=== PATIENT | female | born 1940 | race Caucasian/White ===

== ENCOUNTER 2018-05-24 15:44 | Emergency (ER) | payer MEDICARE, OTHER, SELFPAY ==
[2018-05-24 15:49] VITALS: BP 127/70; PULSE 71; RESP 18; TEMP 36.7; O2SAT 97; BMI 41.9
--- NOTE | 2018-05-24 15:58 | ED_ITS ---
HPI - Back Pain/Injury <DUSTIN Moise - Last Filed: 05/24/18 22:55> General Chief Complaint: Back Pain/Injury Stated Complaint: GLF/ back pain Time Seen by Provider: 05/24/18 15:58 History of Present Illness HPI Narrative: 78-year-old female here for complaint of pain to her lower back status post ground level fall. Patient states that she was at home when she tripped over a garden hose causing her to fall backwards landing on her lower back. She states she has he was able to ambulate afterwards although was tender to the lower back when she did ambulate or bear weight. She denies any loss of bladder or bowel control. Increased pain with motion of the lower back. Pain is limited to the lower back. She denies any head injury. No loss of conscious. No nausea or vomiting. No other concerns or complaints at this time. MD Complaint: back injury Related Data Home Medications Medication Instructions Recorded Confirmed [LUTEIN] 15 mg PO SEE INSTRUCTIONS #0 04/23/11 [VITAMIN D] 400 iu PO Q DAY #0 01/27/13 aspirin 81 mg PO QDAY #0 02/22/17 calcium carbonate-vitamin D3 PO QDAY #0 02/22/17 [Calcium 600 with Vitamin D3] Previous Rx's Medication Instructions Recorded atorvastatin [Lipitor] 20 mg PO HS #90 tab 09/15/17 citalopram 20 mg PO QDAY #90 tab 09/15/17 metoprolol succinate [Toprol XL] 12.5 - 25 mg PO QDAY #135 ter 09/15/17 ranitidine HCl 150 mg PO BID PRN #180 cap 09/21/17 cyclobenzaprine 7.5 mg PO TID PRN #10 tab 05/24/18 hydrocodone-acetaminophen [[place]] 1 tab PO Q6H PRN #10 tab 05/24/18 zolpidem 5 mg tablet 5 mg PO ONCE PRN #1 tab 05/24/18 Allergies Allergy/AdvReac Type Severity Reaction Status Date / Time No Known Drug Allergies Allergy Verified 05/24/18 15:49 Review of Systems <DUSTIN Moise - Last Filed: 05/24/18 22:55> Constitutional Denies chills, Denies fever(s), Denies lethargy and Denies weakness Eyes Denies change in vision, Denies eye discharge, Denies irritation and Denies loss of vision ENT Ears, Nose, Mouth, and Throat: Denies change in voice, Denies neck pain and Denies sore throat Cardiovascular Denies chest pain, Denies irregular heart rhythm, Denies lightheadedness, Denies palpitations, Denies dyspnea, Denies dyspnea on exertion and Denies orthopnea Respiratory Denies cough, Denies dyspnea, Denies dyspnea on exertion and Denies wheezing Gastrointestinal Gastrointestinal: Denies abdominal pain, Denies change in bowel habits, Denies diarrhea, Denies nausea and Denies vomiting Genitourinary Denies hematuria, Denies flank pain, Denies urinary incontinence and Denies urinary urgency Musculoskeletal Denies neck pain Comments: Lower back pain Integumentary/Breasts Denies pruritus, Denies erythema, Denies rash and Denies wounds Neurologic Denies confusion, Denies loss of vision and Denies weakness Psychiatric Denies anxiety, Denies confusion, Denies depression, Denies homicidal ideation and Denies suicidal ideation Endocrine Denies palpitations Hematologic/Lymphatic Denies easy bruising Allergic/Immunologic Denies wheezing Exam <DUSTIN Moise - Last Filed: 05/24/18 22:55> Initial Vital Signs Initial Vital Signs: Vital Signs Temperature 98.1 F 05/24/18 15:49 Pulse Rate 71 05/24/18 15:49 Respiratory Rate 18 05/24/18 15:49 Blood Pressure 127/70 H 05/24/18 15:49 Pulse Oximetry 97 05/24/18 15:49 Const General: cooperative and well developed Nutritional Appearance: well nourished Orientation: alert, awake, oriented x3 and not confused [facility] Mouth: oral mucosae normal and moist mucous membranes Eyes Conjunctivae: conjunctivae normal Sclera: sclerae normal Pupils: PERRL EOM: EOM intact bilaterally Resp Effort & Inspection: normal respiratory effort, able to speak in complete sentences, no respiratory distress and no use of accessory muscles Auscultation: clear to auscultation bilaterally, no rales, no rhonchi and no wheezes Cardio Rate: regular rate Rhythm: regular rhythm Heart Sounds: no click, no gallops, no murmurs and no rubs Pulses: normal peripheral pulses Back/Spine/Pelvis Other: Lower back with no signs of trauma. No ecchymosis. No deformities. Tenderness to bilateral paraspinals of the lumbar spine. Slight tenderness to lower lumbar midline. Distal sensation is intact. Distal pulses are intact. Distal range of motion is intact. Skin General: no rashes or lesions noted, No jaundice and No petechiae <Chago Sanabria MD - Last Filed: 05/25/18 02:12> Initial Vital Signs Initial Vital Signs: Vital Signs Temperature 98.1 F 05/24/18 15:49 Pulse Rate 71 05/24/18 15:49 Respiratory Rate 18 05/24/18 15:49 Blood Pressure 127/70 H 05/24/18 15:49 Pulse Oximetry 97 05/24/18 15:49 Course <DUSTIN Moise - Last Filed: 05/24/18 22:55> Orders Ordered: Discontinued Medications Acetaminophen (Tylenol) 650 mg PO NOW ONE Stop: 05/24/18 16:31 Last Admin: 05/24/18 16:46 Dose: 650 mg Cyclobenzaprine HCl (Flexeril) 10 mg PO NOW ONE Stop: 05/24/18 16:30 Last Admin: 05/24/18 16:46 Dose: 10 mg Vital Signs - 8 hr 05/24/18 18:12 Temperature 97.6 F Pulse Rate 60 Respiratory Rate 16 Blood Pressure [Right Arm] 134/60 H Pulse Oximetry 99 <Chago Sanabria MD - Last Filed: 05/25/18 02:12> Orders Ordered: Discontinued Medications Acetaminophen (Tylenol) 650 mg PO NOW ONE Stop: 05/24/18 16:31 Last Admin: 05/24/18 16:46 Dose: 650 mg Cyclobenzaprine HCl (Flexeril) 10 mg PO NOW ONE Stop: 05/24/18 16:30 Last Admin: 05/24/18 16:46 Dose: 10 mg Vital Signs - 8 hr 05/24/18 18:12 Temperature 97.6 F Pulse Rate 60 Respiratory Rate 16 Blood Pressure [Right Arm] 134/60 H Pulse Oximetry 99 MDM - Back Pain/Injury <DUSTIN Moise - Last Filed: 05/24/18 22:55> Imaging Data lumbar spine : Radiologist's impression: PROCEDURE: CT LUMBAR SPINE WO CON INDICATIONS: Ground level fall with pain to lower back TECHNIQUE: Noncontrast 3 mm thick sections acquired from the T12 level to the sacrum. Sagittal and coronal reformats were constructed. For radiation dose reduction, the following was used: automated exposure control. COMPARISON: [facility], CT, CT-IVP, 05/05/2007, 7:58. FINDINGS: Image quality: Diagnostic. Bones: There are 5 lumbar-type vertebral bodies. The lowest intervertebral disk space is designated as L5-S1. No suspicious osseous lesions are evident. The bone mineralization is within normal limits. There is mild compression deformity with superior vertebral body sclerosis and mild anterior cortical buckling of the vertebral body at the L1 level with approximately 10-15% anterior vertebral height loss. No retropulsion is evident. The remainder of the vertebral body heights are well-maintained. No additional fractures are identified. There are moderate multilevel degenerative changes of the lumbar spine, predominately evident involving the lower lumbar facet joints. There also are at least mild degenerative changes of the sacroiliac joints. Soft tissues: Include soft tissues of the abdomen and pelvis demonstrate a small to moderate-sized hiatal hernia. The solid organs of the included abdomen are not well evaluated related to motion artifact, but appear to be within normal limits. There is aortic atherosclerosis. Imaged bowel loops are nondilated. Colonic diverticulosis is best appreciated within the region of the sigmoid colon. The image portions of the urinary bladder are unremarkable. No lymphadenopathy is evident. No free fluid or loculated fluid collections are identified. IMPRESSION: 1. L1 compression fracture with approximately 10-15% of vertical height loss. No retropulsion. 2. No additional fractures. 3. Moderate degenerative changes of the lumbar spine. 4. Small moderate-sized hiatal hernia. 5. Colonic diverticulosis without diverticulitis. Dictated by: Ángel Gray M.D. on 05/24/2018 at 16:17 Approved by: Ángel Gray M.D. on 05/24/2018 at 16:19 MDM Narrative Medical decision making narrative: Lumbar CT was obtained and shows compression fracture to L1 with loss of height of about 10-15%. Patient felt better after given cyclobenzaprine in the emergency room. [id number] Tylenol as needed for any discomfort. [place] is prescribed for breakthrough pain that Tylenol does not handle. Patient requested cyclobenzaprine being prescribed to help with muscle spasm she is informed not to use a conjunction with [place]. Follow up with primary care provider in a few days for re-evaluation. For any worsening symptoms return to the emergency room. Discharge Plan Departure Patient Disposition: Home, Self-Care Clinical Impression: Closed compression fracture of lumbar vertebra Discharge Date/Time: 05/24/18 19:22 Interventions: ED Discharge Assessment Last Done: 05/24/18 19:22 Instructions: Vertebral Compression Fracture Activity Restrictions/Additional Instructions: CT of the lumbar area shows a compression fracture of the lumbar spine of L1. Use [id number] Tylenol as needed for any discomfort. [place] is prescribed for breakthrough pain also use as directed. Cyclobenzaprine is prescribed to help with any muscle spasms use as directed as well do not use as same time as [place] as both medications can make you drowsy no driving while on these medications. Do not use either the [place] or the cyclobenzaprine with the Ambien. Follow up with her primary care provider in the next few days for re- evaluation. For any worsening symptoms return to the emergency room. Prescriptions: New hydrocodone-acetaminophen [[place]] 5-325 mg tablet 1 tab PO Q6H PRN (Reason: pain) Qty: 10 RF: 0 cyclobenzaprine 7.5 mg tablet 7.5 mg PO TID PRN (Reason: muscle spasm) Qty: 10 RF: 0 No Action [LUTEIN] 15 mg PO SEE INSTRUCTIONS Qty: 0 RF: 0 [VITAMIN D] 400 iu PO Q DAY Qty: 0 RF: 0 calcium carbonate-vitamin D3 [Calcium 600 with Vitamin D3] 600 MG/200 IU capsule PO QDAY Qty: 0 RF: 0 aspirin 81 MG tablet,delayed release (DR/EC) 81 mg PO QDAY Qty: 0 RF: 0 atorvastatin [Lipitor] 20 MG tablet 20 mg PO HS Qty: 90 RF: 3 citalopram 20 MG tablet 20 mg PO QDAY Qty: 90 RF: 3 metoprolol succinate [Toprol XL] 25 MG tablet extended release 24 hr 12.5 - 25 mg PO QDAY Qty: 135 RF: 3 ranitidine HCl 150 MG capsule 150 mg PO BID PRNQty: 180 RF: 3 zolpidem [Ambien] 5 mg tablet 5 mg PO ONCE PRN (Reason: sleep study) Qty: 1 RF: 0 Referrals: Lexii Alas PA-C [Primary Care Provider] - <Chago Sanabria MD - Last Filed: 05/25/18 02:12> Cosign ED Attending Marleneature Attestation: - I was immediately available in the department for consultation. Documentation has been reviewed. I agree with assessment and plan.
--- NOTE | 2018-05-24 16:31 | DI.CT.S_ITS ---
PROCEDURE: CT LUMBAR SPINE WO CON INDICATIONS: Ground level fall with pain to lower back TECHNIQUE: Noncontrast 3 mm thick sections acquired from the T12 level to the sacrum. Sagittal and coronal reformats were constructed. For radiation dose reduction, the following was used: automated exposure control. COMPARISON: [facility], CT, CT-IVP, 05/05/2007, 7:58. FINDINGS: Image quality: Diagnostic. Bones: There are 5 lumbar-type vertebral bodies. The lowest intervertebral disk space is designated as L5-S1. No suspicious osseous lesions are evident. The bone mineralization is within normal limits. There is mild compression deformity with superior vertebral body sclerosis and mild anterior cortical buckling of the vertebral body at the L1 level with approximately 10-15% anterior vertebral height loss. No retropulsion is evident. The remainder of the vertebral body heights are well-maintained. No additional fractures are identified. There are moderate multilevel degenerative changes of the lumbar spine, predominately evident involving the lower lumbar facet joints. There also are at least mild degenerative changes of the sacroiliac joints. Soft tissues: Include soft tissues of the abdomen and pelvis demonstrate a small to moderate-sized hiatal hernia. The solid organs of the included abdomen are not well evaluated related to motion artifact, but appear to be within normal limits. There is aortic atherosclerosis. Imaged bowel loops are nondilated. Colonic diverticulosis is best appreciated within the region of the sigmoid colon. The image portions of the urinary bladder are unremarkable. No lymphadenopathy is evident. No free fluid or loculated fluid collections are identified. IMPRESSION: 1. L1 compression fracture with approximately 10-15% of vertical height loss. No retropulsion. 2. No additional fractures. 3. Moderate degenerative changes of the lumbar spine. 4. Small moderate-sized hiatal hernia. 5. Colonic diverticulosis without diverticulitis. Dictated by: Ángel Gray M.D. on 05/24/2018 at 16:17 Approved by: Ángel Gray M.D. on 05/24/2018 at 16:19
[2018-05-24] MEDS: CYCLOBENZAPRINE 10 MG TABLET PO (16:46)
[2018-05-24] MEDS: ACETAMINOPHEN 325 MG TABLET 650 MG PO (16:46)
[2018-05-24 16:57] VITALS: BP 147/63; PULSE 58; RESP 16; TEMP 36.1; O2SAT 100
[2018-05-24 18:12] VITALS: BP 134/60; PULSE 60; RESP 16; TEMP 36.4; O2SAT 99
== END 2018-05-24 19:22 | disposition home or self-care (01) ==
PROVIDERS: Emergency Provider Nurse Practitioner Family; Family Provider Physician Assistant; PCP Physician Assistant
DX: S32.000A Wedge compression fracture of unspecified lumbar vertebra, initial encounter for closed fracture (principal); W01.0XXA Fall on same level from slipping, tripping and stumbling without subsequent striking against object, initial encounter
CPT/HCPCS: 72131; 99283

== ENCOUNTER 2018-05-28 01:40 | Emergency (ER) | payer MEDICARE, OTHER, SELFPAY ==
[2018-05-28 01:42] VITALS: BP 137/76; PULSE 76; RESP 18; TEMP 36.5; O2SAT 95; BMI 38.7
--- NOTE | 2018-05-28 01:49 | PC.NURSE ---
pt states she took hydrocodone and meloxican about 8pm, and took ibuprofen just prior to coming to ed. pt states pain untolerable.
--- NOTE | 2018-05-28 01:56 | DI.CT.S_ITS ---
PROCEDURE: CT PEL WO CON INDICATIONS: fall 3 days ago, severe pelvic pain, known L1 compression TECHNIQUE: Noncontrast 3 mm axial sections acquired through the bony pelvis, with coronal and sagittal reformatting. COMPARISON: None. FINDINGS: Image quality: Excellent. Bones: No fracture or dislocation. Degenerative changes in lower lumbar spine. 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 Soft tissues: No hematoma or soft tissue mass. There are scattered colonic diverticula in sigmoid colon. No evidence for acute diverticulitis. IMPRESSION: 1. No fracture or dislocation. 2. Diverticulosis without acute diverticulitis. No significant discrepancy with the caustic cresylate shift superintendent radiology preliminary report. Dictated by: Rolly Lowe M.D. on 05/28/2018 at 7:50 Approved by: Rolly Lowe M.D. on 05/28/2018 at 7:53
[2018-05-28] MEDS: HYDROMORPHONE 0.5 MG INJ IV (02:07)
[2018-05-28 02:45] VITALS: BP 137/62; PULSE 66; RESP 16; O2SAT 94
--- NOTE | 2018-05-28 02:45 | ED_ITS ---
HPI - Back Pain/Injury General Chief Complaint: Back Pain/Injury Stated Complaint: Pain control Time Seen by Provider: 05/28/18 01:49 Source: patient, family and EMS Mode of arrival: EMS Limitations: no limitations History of Present Illness HPI Narrative: 78-year-old female presents to the emergency department via EMS for help with ongoing back pain. She had a fall a few days ago when she tripped over a garden hose and was seen and evaluated here with a lumbar CT noting a compression fracture at L1. She is been at her single level home, living with her and states her hydrocodone is not helping her pain. She is able to ambulate to the kitchen with a walker but was not able to get in the car to come here, hence her call to EMS. She denies neurologic findings such as numbness, tingling or weakness. She has no trouble initiating a urine stream, and denies ft drop. She denies new injuries MD Complaint: back pain and fall Onset (ago): day(s) Duration: constant Similar Symptoms Previously: Yes Location: lumbar spine and sacrum Severity: severe Quality: sharp and stabbing Radiation: none Relieving factors: immobilization Exacerbating factors: movement Context: fall and trauma Associated symptoms: denies other symptoms Related Data Home Medications Medication Instructions Recorded Confirmed [LUTEIN] 15 mg PO SEE INSTRUCTIONS #0 04/23/11 [VITAMIN D] 400 iu PO Q DAY #0 01/27/13 aspirin 81 mg PO QDAY #0 02/22/17 calcium carbonate-vitamin D3 PO QDAY #0 02/22/17 [Calcium 600 with Vitamin D3] Previous Rx's Medication Instructions Recorded atorvastatin [Lipitor] 20 mg PO HS #90 tab 09/15/17 citalopram 20 mg PO QDAY #90 tab 09/15/17 metoprolol succinate [Toprol XL] 12.5 - 25 mg PO QDAY #135 ter 09/15/17 ranitidine HCl 150 mg PO BID PRN #180 cap 09/21/17 cyclobenzaprine 7.5 mg PO TID PRN #10 tab 05/24/18 hydrocodone-acetaminophen [[place]] 1 tab PO Q6H PRN #10 tab 05/24/18 zolpidem 5 mg tablet 5 mg PO ONCE PRN #1 tab 05/24/18 hydrocodone 7.5 mg-acetaminophen 1 tab PO Q6H PRN #16 tab 05/27/18 325 mg tablet methocarbamol 500 mg tablet 500 mg PO TID #10 tab 05/27/18 oxycodone 5 mg PO Q4-6H PRN #14 cap 05/28/18 Allergies Allergy/AdvReac Type Severity Reaction Status Date / Time No Known Drug Allergies Allergy Verified 05/28/18 01:42 Review of Systems Review of Systems All systems reviewed & are unremarkable except as noted in HPI and below Constitutional Denies chills, Denies fever(s), Denies lethargy and Denies weakness Eyes Denies change in vision, Denies eye discharge, Denies irritation and Denies loss of vision ENT Ears, Nose, Mouth, and Throat: Denies change in voice, Denies neck pain and Denies sore throat Cardiovascular Denies chest pain, Denies irregular heart rhythm, Denies lightheadedness, Denies palpitations, Denies dyspnea, Denies dyspnea on exertion and Denies orthopnea Respiratory Denies cough, Denies dyspnea, Denies dyspnea on exertion and Denies wheezing Gastrointestinal Gastrointestinal: Denies abdominal pain, Denies change in bowel habits, Denies diarrhea, Denies nausea and Denies vomiting Genitourinary Denies hematuria, Denies flank pain, Denies urinary incontinence and Denies urinary urgency Musculoskeletal Reports back pain, Reports limited range of motion and Denies neck pain Integumentary/Breasts Denies pruritus, Denies erythema, Denies rash and Denies wounds Neurologic Denies confusion, Denies loss of vision and Denies weakness Psychiatric Denies anxiety, Denies confusion, Denies depression, Denies homicidal ideation and Denies suicidal ideation Endocrine Denies palpitations Hematologic/Lymphatic Denies easy bruising Allergic/Immunologic Denies wheezing [facility] Surgical History History of tonsillectomy Status post delivery Exam Narrative Exam Narrative: 78-year-old female presents via EMS obvious distress, complaining of back pain Initial Vital Signs Initial Vital Signs: Vital Signs Temperature 97.7 F 05/28/18 01:42 Pulse Rate 76 05/28/18 01:42 Respiratory Rate 18 05/28/18 01:42 Blood Pressure 137/76 H 05/28/18 01:42 Pulse Oximetry 95 05/28/18 01:42 Const General: cooperative and well developed Nutritional Appearance: well nourished Orientation: alert, awake, oriented x3 and not confused [facility] Head: normocephalic and atraumatic Ears: external ears normal and TM's normal bilaterally Nose: external nose normal and No nasal discharge Face and sinus: sinuses nontender, face symmetric, no sinus tenderness and No dry mucous membranes Mouth: oral mucosae normal and moist mucous membranes Teeth and gingiva: dentition normal Throat: tonsils normal and uvula midline Chest Chest: normal inspection of the chest Cardio Rate: regular rate Rhythm: regular rhythm Heart Sounds: no click, no gallops, no murmurs and no rubs Pulses: normal peripheral pulses Back/Spine/Pelvis Cervical Spine: normal cervical lordosis Thoracic/Lumbar Spine: thoraco-lumbar ROM limited, lumbar spinal tenderness and No straight leg raise positive Skin General: no rashes or lesions noted, No jaundice and No petechiae Neuro General: alert, awake and oriented x3 Cognition: normal cognition Speech: speech normal Gait: antalgic Motor: muscle tone normal throughout Sensory Exam: no sensory deficits noted DTR's: Rt Patellar: 2+ and Lt Patellar: 2+ Extrem General: full ROM, no clubbing, cyanosis or edema, no pedal edema and no calf tenderness Psych Appearance: well kempt Mental Status: mental status grossly normal Attitude: cooperative Thought Content: normal and suicidality Judgment: judgment good Course Orders Ordered: ED Orders 05/28/18 01:56 CT pelvis wo con Stat Discontinued Medications Hydromorphone HCl (Dilaudid) 0.5 mg IV NOW ONE Stop: 05/28/18 01:57 Last Admin: 05/28/18 02:07 Dose: 0.5 mg Oxycodone/Acetaminophen (Endocet 5/325 Prepack) 1 bottle MISC SEEINSTR ONE Stop: 05/28/18 03:28 Last Admin: 05/28/18 03:28 Dose: 1 bottle Vital Signs - 8 hr 05/28/18 01:42 05/28/18 02:45 Temperature 97.7 F Pulse Rate 76 66 Respiratory Rate 18 16 Blood Pressure 137/76 H Blood Pressure [Left Arm] 137/62 H Pulse Oximetry 95 94 Discharge Plan Departure Patient Disposition: Home, Self-Care Clinical Impression: Compression fracture of lumbar vertebra Instructions: Vertebral Compression Fracture Activity Restrictions/Additional Instructions: *You have been diagnosed with [ lumbar compression fracture ] *What to do: *Take medications as directed. Do not mix the hydrocodone and oxycodone, they are both in the same family and can cause significant trouble if combined. Please take either 1 as directed to determine which is most likely to help with your pain. *Follow up with your primary care provider in 2-3 days [and follow up with ortho, urology *Return to ER if you should have any new, worsening or concerning symptoms You have been prescribed narcotic medications. While on these medications you cannot drive or operate heavy machinery. Additionally you cannot sign legal documents or perform any duties such as this. 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 Please understand that we cannot provide further refills of narcotics or controlled substances through the ED and your pain management will need to be through your Primary Care Provider Prescriptions: New oxycodone 5 mg capsule 5 mg PO Q4-6H PRN (Reason: pain) Qty: 14 RF: 0 No Action [LUTEIN] 15 mg PO SEE INSTRUCTIONS Qty: 0 RF: 0 [VITAMIN D] 400 iu PO Q DAY Qty: 0 RF: 0 calcium carbonate-vitamin D3 [Calcium 600 with Vitamin D3] 600 MG/200 IU capsule PO QDAY Qty: 0 RF: 0 aspirin 81 MG tablet,delayed release (DR/EC) 81 mg PO QDAY Qty: 0 RF: 0 atorvastatin [Lipitor] 20 MG tablet 20 mg PO HS Qty: 90 RF: 3 citalopram 20 MG tablet 20 mg PO QDAY Qty: 90 RF: 3 metoprolol succinate [Toprol XL] 25 MG tablet extended release 24 hr 12.5 - 25 mg PO QDAY Qty: 135 RF: 3 ranitidine HCl 150 MG capsule 150 mg PO BID PRNQty: 180 RF: 3 zolpidem [Ambien] 5 mg tablet 5 mg PO ONCE PRN (Reason: sleep study) Qty: 1 RF: 0 methocarbamol [Robaxin] 500 mg tablet 500 mg PO TID Qty: 10 RF: 0 hydrocodone-acetaminophen [[place]] 7.5-325 mg tablet 1 tab PO Q6H PRN (Reason: pain) Qty: 16 RF: 0 hydrocodone-acetaminophen [[place]] 5-325 mg tablet 1 tab PO Q6H PRN (Reason: pain) Qty: 10 RF: 0 cyclobenzaprine 7.5 mg tablet 7.5 mg PO TID PRN (Reason: muscle spasm) Qty: 10 RF: 0
[2018-05-28] MEDS: OXYCODONE/APAP 5/325 PREPACK 1 BOTTLE MISC (03:28)
[2018-05-28 03:45] VITALS: BP 121/63; PULSE 67; RESP 16; O2SAT 95
== END 2018-05-28 03:49 | disposition home or self-care (01) ==
PROVIDERS: Emergency Provider Emergency Medicine; Family Provider Physician Assistant; PCP Physician Assistant
DX: S32.010D Wedge compression fracture of first lumbar vertebra, subsequent encounter for fracture with routine healing (principal); W01.0XXD Fall on same level from slipping, tripping and stumbling without subsequent striking against object, subsequent encounter
CPT/HCPCS: 72192; 96374; 99282; 99284; J1170

== ENCOUNTER → 2018-06-06 11:52 | Outpatient (CLI) | payer MEDICARE, OTHER, SELFPAY ==
[2018-06-06 12:30] LABS: Add Manual Diff / Slide Review NO; Basophils Percent Auto 0.3 % (0-2); Eosinophils Percent Auto 2.6 % (2-4); Hematocrit 36.9 % (36-46); Hemoglobin 12.5 g/dL (12.0-16.0); Lymphocytes Percent Auto 13.7 % (25-40); Mean Corpuscular HGB Conc 33.8 % (30-36); Mean Corpuscular Hemoglobin 30.7 PG (26-34); Mean Corpuscular Volume 90.7 fL (80-100); Monocytes Percent Auto 8.1 % (3-14); Neutrophils Absolute Auto 7500 /uL (3000-5900); Neutrophils Percent Auto 75.3 % (50-75); Platelet Count 415 X10^3/uL (150-400); Red Blood Cell Count 4.07 X10^6/uL (4.0-5.2); Red Cell Distribution Width 13.3 % (11.6-14.8); White Blood Cell Count 9.9 X10^3/uL (4.5-11.0)
[2018-06-06 13:01] LABS: BUN Creatinine Ratio 21.4 (6-22); Blood Urea Nitrogen 15 mg/dL (7-17); Calcium 10.2 mg/dL (8.4-10.2); Carbon Dioxide 30 mmol/L (22-32); Chloride 96 mmol/L (98-107); Estimated Glomerular Filt Rate > 60.0 mL/min (>60); Glucose 99 mg/dL (80-110); HEMOLYSIS < 15 (0-50); Potassium 4.6 mmol/L (3.4-5.1); Sodium 138 mmol/L (137-145)
== END ==
PROVIDERS: PCP Physician Assistant; Visit Provider Orthopaedic Surgery
DX: Z01.818 Encounter for other preprocedural examination (principal)
CPT/HCPCS: 36415; 80048; 85025; 93005

== ENCOUNTER 2018-06-09 10:23 | Day surgery (SDC) | payer MEDICARE, OTHER, SELFPAY ==
[2018-06-06 15:23] VITALS: BMI 43.4
[2018-06-09] VITALS (8 sets, daily range): BP systolic 118–149; BP diastolic 56–84; PULSE 69–96; RESP 11–16; TEMP 36–36.2; O2SAT 94–97; BMI 42.9
--- NOTE | 2018-06-09 | PATH_ITS ---
[facility] Accession Number: [id number] . 01 Material submitted: . VERTEBRAE BONE BX . 02 Diagnosis: Specimen Designated Vertebra Bone Biopsy: Tissue insufficient to survive processing (no tissue present within the block). . [facility] . 02 Electronically signed: . Froy Hernandez MD, Pathologist NPI- [id number] . 01 Gross description: . Received one formalin-filled container, labeled with the patient's name, labeled L1. The specimen consists of an extremely scant aggregate of blood which is filtered and entirely submitted in one cassette. (DC:[id number]) /FRR . 02 Pathologist provided ICD-10: S32.019A . 02 CPT . 281564 Performed at: 01 [facility] [address] [id number] [address] Thrasher MD Phone: [phone] Performed at: 02 [facility] [address] [place], [place] [id number] MD Mukul Pederson MD Phone: [phone]
--- NOTE | 2018-06-09 | DI.RAD.S_ITS ---
PROCEDURE: XR LUMBAR SPINE 2-3V INDICATIONS: L1 KYPHOPLASTY TECHNIQUE: 2 views of the lumbar spine were acquired. COMPARISON: [facility], CR, XR LUMBAR SPINE 2 OR 3 VIEWS, 06/03/2018, 14:05. FINDINGS: Bones: AP and lateral images of the lumbar spine were obtained in surgery with probe overlying the L1 level. Soft tissues: Overlying bowel gas pattern is normal. No suspicious soft tissue calcifications. IMPRESSION: Intraoperative localization for vertebroplasty at L1 Dictated by: Govind Bender M.D. on 06/09/2018 at 15:32 Approved by: Govind Bender M.D. on 06/09/2018 at 15:34
[2018-06-09] MEDS: LACTATED RINGERS 1,000 ML 42 ML IV (11:27)
--- NOTE | 2018-06-09 13:40 | PM.PREOP ---
Pre-operative Note Interval Note Pre-op Check: History & Physical Reviewed by Physician and Exam Performed
--- NOTE | 2018-06-09 13:42 | P.OP_ITS ---
Operative Date/Time/Diagnoses Date of procedure: 06/09/18 Time of procedure: 14:47 Pre-op diagnosis: L1 compression fracture Osteoporosis Back pain Post-op diagnosis: same Procedure & Clinicians Procedure: L1 kyphoplasty Same procedure as scheduled: Yes Indications: [age] year old female with intractable pain from L1 fracture. She had failed conservative management requested operative intervention. Risks and benefits of surgery discussed and appropriate consents were obtained. Surgeon: Terry Rogel Click Yes if Unassisted: Yes Anesthesia Type: General Operative Notes Findings: None Closure Type: primary Specimen(s): other (L1 vertebral body) Procedure in detail: The patient was brought to the operating room and intubated on the table. They were then rolled over to the well-padded prone position. Time-out was performed. We confirmed positioning with two fluoroscopy views. She actually increased height and improved her kyphosis with positioning on the table. The back was prepped and draped in the standard sterile fashion. Preoperative antibiotics were given. Using fluoroscopic guidance, the planned incision site was infiltrated with Marcaine with epinephrine and injected down to the entry site of the left pedicle of L1. A small stab incision was made and we advanced a Jamshiedi needle down the left pedicle into the vertebral body. A bone biopsy was harvested from this and sent to pathology. We then passed the DFine osteotome and opened it up to create a void inside the vertebral body. We then began injecting the cement. This was done with frequent fluoroscopy imaging. There was no extravasation. Once we had good fill of the L1 vertebral body the injection was stopped and the trocars were removed. Final x- rays were taken. The wound was cleaned. Steri-Strips and sterile dressing were placed. Patient was rolled over, extubated, and brought to recovery without complications. Complications: none Condition: stable Disposition: PACU Plan for aftercare: Outpatient. Activity as tolerated.
--- NOTE | 2018-06-09 14:31 | SUR.OPER ---
Prone on padded OR bed, head in foam head support, gel chest rolls, gel pad under knees, pillow under lower legs, toes free of pressure, arms secured on padded arm boards toward head of bed. taped on blanket to bed at upper back, hips, and lower legs.
[2018-06-09] MEDS: BUPIVACAINE 0.5% (PF) 30 ML VIAL INJ (14:36)
[2018-06-09] MEDS: CEFAZOLIN 2 GM/100 ML FROZ.PIGGY IV (14:37)
[2018-06-09] MEDS: HYDROCODONE/ACET 5/325 TABLET 2 TAB PO (15:33)
== END 2018-06-09 16:00 | disposition home or self-care (01) ==
PROVIDERS: Family Provider Physician Assistant; PCP Physician Assistant; Visit Provider Orthopaedic Surgery
PROC: (CPT 22514; principal; 2018-06-09 12:45)
DX: S32.010A Wedge compression fracture of first lumbar vertebra, initial encounter for closed fracture (principal); M80.08XA Age-related osteoporosis with current pathological fracture, vertebra(e), initial encounter for fracture; M54.9 Dorsalgia, unspecified; G47.33 Obstructive sleep apnea (adult) (pediatric)
CPT/HCPCS: 22514; 72100; 76001; 88305; C1776; J0690; J2405; J2704; J3010

== ENCOUNTER → 2018-06-22 12:54 | Outpatient (CLI) | payer MEDICARE, OTHER, SELFPAY | PROVIDERS: Family Provider Physician Assistant; PCP Physician Assistant; Visit Provider Physician Assistant | DX: M85.852 Other specified disorders of bone density and structure, left thigh (principal); Z78.0 Asymptomatic menopausal state | CPT/HCPCS: 77080 ==

== ENCOUNTER → 2018-07-05 13:54 | Outpatient (CLI) | payer MEDICARE, OTHER, SELFPAY ==
[2018-07-05 15:50] LABS: Thyroid Stimulating Hormone 1.14 uIU/mL (0.47-4.68)
== END ==
PROVIDERS: Family Provider Physician Assistant; PCP Physician Assistant; Visit Provider Physician Assistant
DX: E04.1 Nontoxic single thyroid nodule (principal)
CPT/HCPCS: 36415; 84443

== ENCOUNTER → 2018-07-08 10:37 | Outpatient (CLI) | payer MEDICARE, OTHER, SELFPAY ==
--- NOTE | 2018-07-08 10:38 | DI.US.S_ITS ---
PROCEDURE: US THYROID INDICATIONS: THYROID NODULE TECHNIQUE: Real-time scanning was performed of the thyroid gland, with image documentation. COMPARISON: [facility], US, THYROID, 06/23/2011, 13:08. [facility], US, THYROID, 06/21/2012, 9:10. FINDINGS: Right: Thyroid lobe measures 1.2 x 1.7 x 4.7 cm, prior 0.9 x 1.7 x 3.6 CM. Gland is homogeneous in echotexture. Left: Thyroid lobe measures 1.4 x 1.5 x 4.4 cm, prior 1.0 x 1.7 x 3.8 CM. Gland is homogenous in echotexture. Isthmus: 2.8 mm thick. Nodule number: 1 Location: Left mid body Size: 4 x 4 by 6 mm . Prior 2 mm Composition: Cystic Echogenicity: Hypoechoic Shape: Oval Margins: Smooth Echogenic foci: None Total points: 2 ACR TI-RADS category: 2 Nodule number: 2 Location: Right mid lateral Size: 3 x 4 x 4 mm Prior 3 x 5 x 6 mm Composition: Predominantly cystic Echogenicity: Hypoechoic Shape: Round Margins: Smooth Echogenic foci: None Total points: 2 ACR TI-RADS category: 2 Nodule number: 3 Location: Right mid medial Size: 5 x 5 x 6 mm. Prior 4 x 6 x 6 mm Composition: Predominantly solid Echogenicity: Hypoechoic Shape: Oval Margins: Smooth Echogenic foci: None Total points: 4 ACR TI-RADS category: 4 Nodule number: 4 Location: Right mid medial near isthmus Size: 5 x 6 x 8 mm. Prior 4 x 6 x 7 mm. Composition: Solid Echogenicity: Isoechoic Shape: Oval Margins: Smooth Echogenic foci: Punctate Total points: 6 ACR TI-RADS category: 4 IMPRESSION: Bilateral subcentimeter cystic and solid nodules remain stable. One year followup study recommended. ACR TI-RADS definitions and recommendations: TI-RADS 1 (benign): 0 points. FNA not needed. TI-RADS 2 (not suspicious): 2 points. FNA not needed. TI-RADS 3 (mildly suspicious): 3 points. * FNA if 2.5 cm or larger, follow up if 1.5 cm or larger (at 1, 3, and 5 years). TI-RADS 4 (moderately suspicious): 4-6 points. * FNA if 1.5 cm or larger, follow up if 1 cm or larger (at 1, 2, 3, and 5 years). TI-RADS 5 (highly suspicious): 7 points or more. * FNA if 1 cm or larger, follow up if 0.5 cm or larger (every year for 5 years). Dictated by: Govind Bender M.D. on 07/08/2018 at 11:35 Approved by: Govind Bender M.D. on 07/08/2018 at 11:48
== END ==
PROVIDERS: Family Provider Physician Assistant; PCP Physician Assistant; Visit Provider Physician Assistant
DX: E04.2 Nontoxic multinodular goiter (principal)
CPT/HCPCS: 76536

== ENCOUNTER → 2018-07-18 14:11 | Outpatient (CLI) | payer MEDICARE, OTHER, SELFPAY ==
--- NOTE | 2018-07-18 | DI.MG.S_ITS ---
BILATERAL DIGITAL SCREENING MAMMOGRAM 3D/2D WITH CAD: 07/18/2018 CLINICAL: Routine screening. Comparison is made to exams dated: 06/17/2017 mammogram, 06/16/2016 mammogram, and 05/28/2015 mammogram - [facility]. The tissue of both breasts is predominantly fatty. Current study was also evaluated with a Computer Aided Detection (CAD) system. There are benign calcifications in both breasts. There is a linear scar marker overlying the upper inner left breast. No significant masses, calcifications, or other findings are seen in either breast. There has been no significant interval change. IMPRESSION: BENIGN There is no mammographic evidence of malignancy. A 1 year screening mammogram is recommended. This exam was interpreted at Station ID: [id number]. NOTE: For mammograms, a report in lay terms will be sent to the patient. Approximately 15% of breast malignancies will not be visualized mammographically. In the management of a palpable breast mass, a negative mammogram must not discourage biopsy of a clinically suspicious lesion. Electronically Signed By: Min Traore M.D. ecl/:07/18/2018 20:45:32 letter sent: Normal Exam ACR BI-RADS Category 2: Benign Finding(s) 3342F
== END ==
PROVIDERS: Family Provider Physician Assistant; PCP Physician Assistant; Visit Provider Physician Assistant
DX: Z12.31 Encounter for screening mammogram for malignant neoplasm of breast (principal)
CPT/HCPCS: 77063; 77067

== ENCOUNTER → 2018-11-02 13:26 | Outpatient (CLI) | payer MEDICARE, OTHER, SELFPAY ==
[2018-11-02 15:58] LABS: Vitamin D 25 Hydroxy (D3) 35.9 ng/mL (30.0-100.0)
== END ==
PROVIDERS: PCP Physician Assistant; Visit Provider Physician Assistant
DX: M81.0 Age-related osteoporosis without current pathological fracture (principal)
CPT/HCPCS: 36415; 82306

== ENCOUNTER → 2019-05-03 16:39 | Outpatient (CLI) | payer MEDICARE, OTHER, SELFPAY ==
--- NOTE | 2019-05-03 17:14 | DI.RAD.S_ITS ---
PROCEDURE: XR CHEST 2V INDICATIONS: cough TECHNIQUE: 2 views of the chest were acquired. COMPARISON: [facility] [place], CR, XR LUMBAR SPINE 2 OR 3 VIEWS, 06/21/2018, 14:27. [facility], CR, CHEST 2 VIEW, 12/22/2017, 11:51. FINDINGS: Surgical changes and devices: None. Lungs and pleura: Lungs are clear. No pleural effusions or pneumothorax. Mediastinum: Mediastinal contours are normal. Heart size is normal. Bones and chest wall: There is compression fracture and kyphoplasty in L1. Soft tissues appear unremarkable. IMPRESSION: No acute cardiopulmonary disease. Dictated by: Rolly Lowe M.D. on 05/04/2019 at 9:28 Approved by: Rolly Lowe M.D. on 05/04/2019 at 9:29
== END ==
PROVIDERS: Family Provider Physician Assistant; PCP Physician Assistant; Visit Provider Nurse Practitioner
DX: R05 Cough (principal); R06.2 Wheezing
CPT/HCPCS: 71046

== ENCOUNTER → 2019-06-21 06:32 | Outpatient (CLI) | payer MEDICARE, OTHER, SELFPAY ==
[2019-06-21 07:57] LABS: Alanine Aminotransferase 18 IU/L (9-52); Albumin Globulin Ratio 1.5 (1.0-2.8); Alkaline Phosphatase 55 U/L (38-126); Aspartate Aminotransferase 26 IU/L (14-36); BUN Creatinine Ratio 23.8 (6-22); Bilirubin Total 0.6 mg/dL (0.2-1.3); Blood Urea Nitrogen 19 mg/dL (7-17); Calcium 9.8 mg/dL (8.4-10.2); Carbon Dioxide 30 mmol/L (22-32); Chloride 103 mmol/L (98-107); Cholesterol 160 mg/dL (140-199); Estimated Glomerular Filt Rate > 60.0 mL/min (>60); Globulin 2.7 g/dL (1.7-4.1); Glucose 94 mg/dL (80-110); HDL Cholesterol 69 mg/dL (40-60); HEMOLYSIS < 15 (0-50); LDL Cholesterol Calculated 65 mg/dL (<100); Potassium 4.6 mmol/L (3.4-5.1); Sodium 138 mmol/L (137-145); Total Protein 6.7 g/dL (6.3-8.2); Triglycerides 130 mg/dL (35-150)
[2019-06-21 08:20] LABS: Vitamin D 25 Hydroxy (D3) 34.7 ng/mL (30.0-100.0)
[2019-06-21 08:50] LABS: Ferritin 77.8 ng/mL (11.1-264)
== END ==
PROVIDERS: Family Provider Nurse Practitioner Family; PCP Physician Assistant; Visit Provider Physician Assistant
DX: G47.61 Periodic limb movement disorder (principal); E78.5 Hyperlipidemia, unspecified; M81.0 Age-related osteoporosis without current pathological fracture
CPT/HCPCS: 36415; 80053; 80061; 82306; 82728

== ENCOUNTER → 2019-07-21 11:32 | Outpatient (CLI) | payer MEDICARE, OTHER, SELFPAY ==
--- NOTE | 2019-07-21 | DI.MG.S_ITS ---
BILATERAL DIGITAL SCREENING MAMMOGRAM 3D/2D WITH CAD: 07/21/2019 CLINICAL: Routine screening. Comparison is made to exams dated: 07/18/2018 mammogram, 06/22/2017 mammogram, 06/17/2017 mammogram, and 06/16/2016 mammogram - [facility]. There are scattered fibroglandular elements in both breasts. Current study was also evaluated with a Computer Aided Detection (CAD) system. There are benign post operative findings in the left breast. There also are benign calcifications in both breasts. No significant masses, calcifications, or other findings are seen in either breast. There has been no significant interval change. IMPRESSION: There is no mammographic evidence of malignancy. A 1 year screening mammogram is recommended. This exam was interpreted at Station ID: [id number]. NOTE: For mammograms, a report in lay terms will be sent to the patient. Approximately 15% of breast malignancies will not be visualized mammographically. In the management of a palpable breast mass, a negative mammogram must not discourage biopsy of a clinically suspicious lesion. Electronically Signed By: Lizzy patrick/delfina:07/21/2019 13:32:16 letter sent: Normal Exam ACR BI-RADS Category 2: Benign Finding(s) 3342F
== END ==
PROVIDERS: PCP Physician Assistant; Visit Provider Physician Assistant
DX: Z13.21 Encounter for screening for nutritional disorder (principal)
CPT/HCPCS: 77063; 77067

== ENCOUNTER → 2019-10-16 10:28 | Outpatient (CLI) | payer MEDICARE, OTHER, SELFPAY ==
--- NOTE | 2019-10-16 10:30 | DI.US.S_ITS ---
PROCEDURE: US THYROID INDICATIONS: ONE YEAR FOLLOW UP THYROID NODULES TECHNIQUE: Real-time scanning was performed of the thyroid gland, with image documentation. COMPARISON: [facility], US, US THYROID, 07/08/2018, 11:06. FINDINGS: Right: Thyroid lobe measures 3.7 x 1.1 x 1.9 cm, and is homogeneous in echotexture. Left: Thyroid lobe measures 3.3 x 1.7 x 1.0 cm, and is homogenous in echotexture. Isthmus: 3.0 mm thick. Nodule number: 1 Location: Left mid inferior Size: Unchanged 0.4 x 0.5 x 0.3 cm Composition: Cystic Echogenicity: Anechoic Shape: wider than tall. Margins: Smooth Echogenic foci: None Total points: 0 ACR TI-RADS category: Benign Nodule number: 2 Location: Left mid Size: 0.4 x 0.3 x 0.3 cm. Composition: Predominantly solid Echogenicity: Isoechoic Shape: wider than tall. Margins: Smooth Echogenic foci: None Total points: 3 ACR TI-RADS category: Mildly suspicious Nodule number: 3 Location: Right mid Size: Unchanged 0.7 x 0.6 x 0.5 cm. Composition: Predominantly solid Echogenicity: Hypoechoic Shape: wider than tall. Margins: Smooth Echogenic foci: None Total points: 4 ACR TI-RADS category: Moderately suspicious Nodule number: 4 Location: Right lateral Size: Unchanged 0.4 x 0.4 x 0.3 cm Composition: Cystic Echogenicity: Anechoic Shape: wider than tall. Margins: Smooth Echogenic foci: None Total points: 0 ACR TI-RADS category: Benign Nodule number: 5 Location: Right mid Size: Unchanged 0.6 x 0.5 x 0.4 cm. Composition: Predominantly solid Echogenicity: Isoechoic Shape: wider than tall. Margins: Smooth Echogenic foci: Internal punctate echogenic foci Total points: 6 ACR TI-RADS category: Moderately suspicious IMPRESSION: No change in size or appearance of bilateral thyroid nodules and there is a new sub-5 mm left thyroid nodule. Recommend continued followup ultrasound as detailed below. ACR TI-RADS definitions and recommendations: TI-RADS 1 (benign): 0 points. FNA not needed. TI-RADS 2 (not suspicious): 2 points. FNA not needed. TI-RADS 3 (mildly suspicious): 3 points. * FNA if 2.5 cm or larger, follow up if 1.5 cm or larger (at 1, 3, and 5 years). TI-RADS 4 (moderately suspicious): 4-6 points. * FNA if 1.5 cm or larger, follow up if 1 cm or larger (at 1, 2, 3, and 5 years). TI-RADS 5 (highly suspicious): 7 points or more. * FNA if 1 cm or larger, follow up if 0.5 cm or larger (every year for 5 years). Dictated by: Honorio HANKINS Interpreted: Brien Hackett MD on 10/16/2019 at 12:32 Approved by: Brien Hackett M.D. on 10/16/2019 at 13:17
== END ==
PROVIDERS: PCP Physician Assistant; Visit Provider Physician Assistant
DX: E04.2 Nontoxic multinodular goiter (principal)
CPT/HCPCS: 76536

== ENCOUNTER → 2019-11-10 17:34 | Outpatient (CLI) | payer MEDICARE, OTHER, SELFPAY ==
--- NOTE | 2019-11-10 17:36 | DI.MRI.S_ITS ---
PROCEDURE: MR KNEE LT WO CON INDICATIONS: UNSPECIFIED INTERNAL DERAINGMENT OF LEFT KNEE TECHNIQUE: Noncontrast sagittal PD fast spin echo and T2 fast spin echo with fat saturation, sagittal 3-D FLASH with fat saturation; coronal T1 spin echo and PD fast spin echo with fat saturation, and axial PD fast spin echo with fat saturation through the knee. COMPARISON: [facility] [place], CR, XR KNEE ARTHRITIC SERIES LT, 07/10/2019, 13:56. FINDINGS: Image quality: Excellent. Menisci: There is medial meniscal extrusion and severe degenerative tear of the body and posterior horn of the medial meniscus. There is lateral meniscal extrusion and degenerative tear of the body of the lateral meniscus. The meniscal root ligaments appear intact. Cruciate ligaments: The anterior and posterior cruciate ligaments appear intact. Medial structures: The medial collateral ligament appears intact. The posterior oblique ligament, semimembranosus tendon insertions, oblique popliteal ligament, and meniscocapsular junction appear intact. Visualized portions of the pes anserinus tendons appear normal. No abnormal bursal fluid. Lateral structures: The lateral collateral ligament, long and short heads of the biceps femoris tendon appear intact. The popliteus tendon appears normal; the popliteofibular ligament appears intact. The posterosuperior and anteroinferior popliteomeniscal fascicles appear intact. The arcuate and fabellofibular ligaments appear intact, on either side of the lateral inferior geniculate artery. Iliotibial band appears normal. Anterior structures: The quadriceps and patellar tendons appear intact. Patellar alignment is normal. No femoral trochlear dysplasia or ventral trochlear prominence. No edema in the infrapatellar fat pad. Bones and cartilage: No fractures. There is severe tricompartmental cartilage loss. There is marrow edema in the medial tibial plateau, and less degree medial femoral condyle, likely secondary to a [id number]. Joint space: There is a cystic mass in the posterior intercondylar notch, which is in contact with the posterior cruciate ligament as well as the anterior cruciate ligament. There is moderate knee joint effusion. Tiny Simon's cyst. Normal appearing synovial plicae are incidentally noted. IMPRESSION: 1. Medial meniscal extrusion and degenerative tear of the body and posterior horn of the medial meniscus. 2. Lateral meniscal extrusion and degenerative tear of the body of the lateral meniscus. 3. Severe tricompartmental cartilage loss. There is marrow edema in the medial tibial plateau and medial femoral condyle cue to bone on bone. 4. A cystic mass in the posterior intercondylar notch, which is in contact with the posterior cruiate ligment and anterior cruciate ligament, consistent with either a PCL cyst or an ACL cyst. Both PCL and ACL appear intact. 5. Moderate knee joint effusion. 6. Small Simon's cyst. Dictated by: Rolly Lowe M.D. on 11/13/2019 at 13:48 Approved by: Rolly Lowe M.D. on 11/13/2019 at 14:08
== END ==
PROVIDERS: PCP Physician Assistant; Visit Provider Orthopaedic Surgery
DX: M23.262 Derangement of other lateral meniscus due to old tear or injury, left knee (principal); M23.222 Derangement of posterior horn of medial meniscus due to old tear or injury, left knee; M23.232 Derangement of other medial meniscus due to old tear or injury, left knee; M25.462 Effusion, left knee; M71.22 Synovial cyst of popliteal space [Baker], left knee
CPT/HCPCS: 73721

== ENCOUNTER → 2020-07-01 12:27 | Outpatient (CLI) | payer MEDICARE, OTHER, SELFPAY | PROVIDERS: PCP Family Medicine; Referring Provider Physician Assistant; Visit Provider Physician Assistant | DX: M81.0 Age-related osteoporosis without current pathological fracture (principal); Z78.0 Asymptomatic menopausal state; E07.9 Disorder of thyroid, unspecified; Z87.81 Personal history of (healed) traumatic fracture; Z82.62 Family history of osteoporosis | CPT/HCPCS: 77080 ==

== ENCOUNTER → 2020-07-23 11:46 | Outpatient (CLI) | payer MEDICARE, OTHER, SELFPAY ==
--- NOTE | 2020-07-23 | DI.MG.S_ITS ---
BILATERAL DIGITAL SCREENING MAMMOGRAM 3D/2D WITH CAD: 07/23/2020 CLINICAL: Routine screening. Comparison is made to exams dated: 07/21/2019 mammogram, 07/18/2018 mammogram, 06/22/2017 mammogram, and 06/17/2017 mammogram - [facility]. There are scattered fibroglandular elements in both breasts. Current study was also evaluated with a Computer Aided Detection (CAD) system. There are benign calcifications in both breasts. There also are benign post operative findings in the left breast. No significant masses, calcifications, or other findings are seen in either breast. There has been no significant interval change. IMPRESSION: BENIGN There is no mammographic evidence of malignancy. A 1 year screening mammogram is recommended. This exam was interpreted at Station ID: [id number]. NOTE: For mammograms, a report in lay terms will be sent to the patient. Approximately 15% of breast malignancies will not be visualized mammographically. In the management of a palpable breast mass, a negative mammogram must not discourage biopsy of a clinically suspicious lesion. Electronically Signed By: Joes romero/delfina:07/23/2020 13:27:03 letter sent: Normal Exam ACR BI-RADS Category 2: Benign Finding(s) [id number]
== END ==
PROVIDERS: PCP Family Medicine; Referring Provider Family Medicine; Visit Provider Family Medicine
DX: Z12.31 Encounter for screening mammogram for malignant neoplasm of breast (principal)
CPT/HCPCS: 77063; 77067

== ENCOUNTER → 2020-07-29 07:35 | Outpatient (CLI) | payer MEDICARE, OTHER, SELFPAY ==
[2020-07-29 08:45] LABS: Add Manual Diff / Slide Review NO; Basophils Absolute Auto 0 /uL (0-100); Basophils Percent Auto 0.8 % (0-2); Eosinophils Absolute Auto 200 /uL (0-450); Eosinophils Percent Auto 4.8 % (2-4); Hematocrit 37.2 % (36-46); Hemoglobin 12.2 g/dL (12.0-16.0); Lymphocytes Absolute Auto 1400 /uL (1100-4500); Mean Corpuscular HGB Conc 32.7 % (30-36); Mean Corpuscular Hemoglobin 30.3 PG (26-34); Mean Corpuscular Volume 92.7 fL (80-100); Monocytes Absolute Auto 300 /uL (0-900); Monocytes Percent Auto 7.3 % (3-14); Neutrophils Absolute Auto 2600 /uL (1500-7000); Neutrophils Percent Auto 57.1 % (50-75); Platelet Count 245 X10^3/uL (150-400); Red Blood Cell Count 4.01 X10^6/uL (4.0-5.2); Red Cell Distribution Width 13.3 % (11.6-14.8); White Blood Cell Count 4.6 X10^3/uL (4.5-11.0)
[2020-07-29 08:55] LABS: Hemoglobin A1C% w Est Avg Glu 5.5 % (4.0-6.0)
[2020-07-29 08:57] LABS: Alanine Aminotransferase 23 IU/L (<35); Albumin 3.9 g/dL (3.5-5.0); Albumin Globulin Ratio 1.6 (1.0-2.8); Alkaline Phosphatase 74 U/L (38-126); Aspartate Aminotransferase 30 IU/L (14-36); BUN Creatinine Ratio 23.7 (6-22); Bilirubin Total 0.7 mg/dL (0.2-1.3); Blood Urea Nitrogen 18 mg/dL (7-17); Calcium 9.8 mg/dL (8.4-10.2); Carbon Dioxide 25 mmol/L (22-32); Chloride 105 mmol/L (98-107); Cholesterol 163 mg/dL (140-199); Estimated Glomerular Filt Rate > 60.0 mL/min (>60); Globulin 2.5 g/dL (1.7-4.1); Glucose 95 mg/dL (80-110); HDL Cholesterol 73 mg/dL (40-60); HEMOLYSIS < 15 (0-50); LDL Cholesterol Calculated 61 mg/dL (<100); Potassium 4.4 mmol/L (3.4-5.1); Sodium 136 mmol/L (137-145); Total Protein 6.4 g/dL (6.3-8.2); Triglycerides 145 mg/dL (35-150)
== END ==
PROVIDERS: PCP Family Medicine; Referring Provider Family Medicine; Visit Provider Family Medicine
DX: E66.01 Morbid (severe) obesity due to excess calories (principal); E78.5 Hyperlipidemia, unspecified; F32.9 Major depressive disorder, single episode, unspecified; G47.33 Obstructive sleep apnea (adult) (pediatric); K21.9 Gastro-esophageal reflux disease without esophagitis
CPT/HCPCS: 36415; 80053; 80061; 83036; 85025

== ENCOUNTER → 2020-08-23 15:27 | Outpatient (CLI) | payer MEDICARE, OTHER, SELFPAY ==
[2020-08-23 19:58] LABS: COVID19 -Nasal RAPID Negative (Negative)
== END ==
PROVIDERS: PCP Family Medicine; Visit Provider Nurse Practitioner
DX: Z11.59 Encounter for screening for other viral diseases (principal)
CPT/HCPCS: 87635

== ENCOUNTER → 2020-08-30 16:12 | Outpatient (CLI) | payer MEDICARE, OTHER, SELFPAY ==
--- NOTE | 2020-08-30 16:14 | DI.RAD.S_ITS ---
PROCEDURE: XR CHEST 2V INDICATIONS: exertional SOB TECHNIQUE: 2 views of the chest were acquired. COMPARISON: [facility], CT, CT LUMBAR SPINE WO CON, 05/24/2018, 16:28. [facility], CR, XR CHEST 2V, 05/03/2019, 17:21. FINDINGS: Surgical changes and devices: None. Scattered subsegmental atelectasis and/or scarring. No focal consolidation. No pleural effusions or pneumothorax. Mediastinum: Mediastinal contours are normal. Heart size is normal. Bones and chest wall: No suspicious bony abnormalities. Post kyphoplasty changes. Soft tissues appear unremarkable. IMPRESSION: Scattered subsegmental atelectasis and/or scarring. No focal consolidation. Dictated by: Brien Hackett M.D. on 08/30/2020 at 17:07 Approved by: Brien Hackett M.D. on 08/30/2020 at 17:08
== END ==
PROVIDERS: PCP Family Medicine; Referring Provider Family Medicine; Visit Provider Family Medicine
DX: R06.02 Shortness of breath (principal)
CPT/HCPCS: 71046

== ENCOUNTER → 2020-09-12 10:17 | Outpatient (CLI) | payer MEDICARE, OTHER, SELFPAY ==
--- NOTE | 2020-09-12 | DI.US.S_ITS ---
PROCEDURE: US THYROID INDICATIONS: GOITER TECHNIQUE: Real-time scanning was performed of the thyroid gland, with image documentation. COMPARISON: [facility], US, US THYROID, 10/16/2019, 10:38. FINDINGS: Right: Thyroid lobe measures 4.2 x 1.1 x 1.7 cm, and is homogeneous in echotexture. Subcentimeter colloid cyst. Left: Thyroid lobe measures 4.6 x 1.7 x 1.4 cm, and is homogenous in echotexture. Subcentimeter colloid cyst. Isthmus: 2.1 mm thick. Nodule number: 1 Location: Left mid Size: Unchanged 0.5 x 0.4 x 0.5 cm. Composition: Solid Echogenicity: Hypoechoic Shape: wider than tall. Margins: Smooth Echogenic foci: None Total points: 4 ACR TI-RADS category: Moderately suspicious Nodule number: 2 Location: Right inferior Size: Unchanged 0.6 x 0.5 x 0.6 cm. Composition: Predominantly solid Echogenicity: Hypoechoic Shape: wider than tall. Margins: Smooth Echogenic foci: 9 Total points: 4 ACR TI-RADS category: Moderately suspicious Nodule number: Right mid Location: 3 Size: Unchanged at unchanged 0.8 x 0.3 x 0.5 Composition: Solid Echogenicity: Hypoechoic Shape: wider than tall. Margins: Smooth Echogenic foci: Internal punctate echogenic foci Total points: 7 ACR TI-RADS category: Highly suspicious IMPRESSION: 1. 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 Recommend continued followup ultrasound as detailed below. ACR TI-RADS definitions and recommendations: TI-RADS 1 (benign): 0 points. FNA not needed. TI-RADS 2 (not suspicious): 2 points. FNA not needed. TI-RADS 3 (mildly suspicious): 3 points. * FNA if 2.5 cm or larger, follow up if 1.5 cm or larger (at 1, 3, and 5 years). TI-RADS 4 (moderately suspicious): 4-6 points. * FNA if 1.5 cm or larger, follow up if 1 cm or larger (at 1, 2, 3, and 5 years). TI-RADS 5 (highly suspicious): 7 points or more. * FNA if 1 cm or larger, follow up if 0.5 cm or larger (every year for 5 years). Dictated by: Honorio HANKINS Interpreted: Nikhil Quezada MD on 09/12/2020 at 16:10 Approved by: Nikhil Quezada M.D. on 09/12/2020 at 16:31
[2020-09-12 13:25] LABS: Free T4, Direct Thyroxine 0.94 ng/dL (0.78-2.19)
[2020-09-12 13:39] LABS: Thyroid Stimulating Hormone 1.34 uIU/mL (0.47-4.68)
== END ==
PROVIDERS: PCP Family Medicine; Referring Provider Family Medicine; Visit Provider Internal Medicine
DX: E04.2 Nontoxic multinodular goiter (principal)
CPT/HCPCS: 36415; 76536; 84439; 84443

== ENCOUNTER 2021-05-23 14:57 | Emergency (ER) | payer MEDICARE, OTHER, SELFPAY ==
[2021-05-23 15:06] VITALS: BP 131/61; PULSE 87; RESP 15; TEMP 35.8; O2SAT 96; BMI 42.9
--- NOTE | 2021-05-23 15:10 | DI.RAD.S_ITS ---
PROCEDURE: XR HIP W PEL IF DONE RT 2V INDICATIONS: right hip pain TECHNIQUE: Single view of the pelvis and additional view of the right hip was obtained. COMPARISON: None. FINDINGS: Bones: No fractures or dislocations. No suspicious bony lesions. The visualized pelvic ring appears intact. Moderate bilateral hip joint space narrowing present. Soft tissues: No suspicious soft tissue calcifications or masses. IMPRESSION: Mild bilateral acetabular joint space narrowing. No fracture or dislocation. Dictated by: Wilfred Noble M.D. on 05/23/2021 at 15:20 Approved by: Wilfred Noble M.D. on 05/23/2021 at 15:21
[2021-05-23 22:25] VITALS: BP 183/81; PULSE 61; RESP 12; O2SAT 98
--- NOTE | 2021-05-23 22:40 | ED_ITS ---
HPI - Extremity Injury (Lower) General Chief Complaint: Extremity Injury, Lower Stated Complaint: rt hip pain s/p fall tues am Time Seen by Provider: 05/23/21 22:31 Source: patient Mode of arrival: Wheelchair Limitations: no limitations History of Present Illness HPI Narrative: 81-year-old female former smoker with history of GERD, hyperlipidemia, migraine and depressionpresents with her and a chief complaint of right hip pain which has been ongoing since a ground level fall few days ago. She had been ambulating and tripped and fell onto her hip which down hurts with ambulation and standing. She denies any head, neck or back pain. She denies any numbness, tin MD complaint: hip injury Type of Injury: blunt Place: work Severity: mild Relieving factors: rest Exacerbating factors: weight bearing and movement Context: fall and direct blow Associated symptoms: able to partially bear weight Other symptoms: none Related Data Home Medications Medication Instructions Recorded Confirmed aspirin 81 mg PO QDAY #0 02/22/17 02/10/21 acetaminophen 500 mg tablet 500 mg PO Q6H PRN 06/15/18 02/10/21 cholecalciferol (vitamin D3) 10 1,200 unit PO DAILY cap 11/30/18 02/10/21 mcg (400 unit) capsule Lactase 1 tab PO ONCE HS PRN 06/19/19 02/10/21 Lutein 15 mg See Rx Instructions .ROUTE .COMPLEX 06/19/19 02/10/21 Resmed AirCurve 10 BI-PAP #1 ea 06/19/19 02/10/21 calcium carbonate-vitamin D3 600 See Rx Instructions PO DAILY 06/19/19 02/10/21 mg (1,500 mg)-800 unit tablet magnesium 250 mg tablet 250 mg PO DAILY 06/19/19 02/10/21 multivitamin See Rx Instructions PO DAILY 06/19/19 02/10/21 Previous Rx's Medication Instructions Recorded Disabled Parking Placard 1 each .ROUTE ONCE #1 each 06/19/19 albuterol sulfate 90 mcg/actuation 2 puff INHALATION Q6H PRN #18 gram 07/24/20 aerosol inhaler atorvastatin 20 mg tablet 20 mg PO HS #90 tab 07/24/20 citalopram 20 mg tablet 20 mg PO QDAY #90 tab 07/24/20 metoprolol succinate 25 mg See Rx Instructions PO BID #135 tab 07/24/20 tablet,extended release 24 hr raloxifene 60 mg tablet 60 mg PO DAILY #90 tab 07/24/20 fluticasone 100 mcg-salmeterol 50 1 inh INHALATION BID #120 ea 01/14/21 mcg/dose blistr powdr for inhalation omeprazole 20 mg capsule,delayed 20 mg PO DAILY #90 cap 02/10/21 release Allergies Allergy/AdvReac Type Severity Reaction Status Date / Time bupropion AdvReac Intermediate Personality Verified 05/23/21 15:06 change Review of Systems Constitutional Constitutional: Denies chills, Denies fatigue, Denies fever(s), Denies frequent falls, Denies lethargy and Denies weakness Eyes Eyes: Denies change in vision, Denies eye discharge, Denies irritation and Denies loss of vision ENT Ears, Nose, Mouth, and Throat: Denies change in voice, Denies dizziness, Denies neck pain, Denies sore throat and Denies throat swelling Cardiovascular Cardiovascular: Denies chest pain, Denies irregular heart rhythm, Denies lightheadedness, Denies palpitations, Denies dyspnea, Denies dyspnea on exertion and Denies orthopnea Respiratory Respiratory: Denies cough, Denies dyspnea, Denies dyspnea on exertion and Denies wheezing Gastrointestinal Gastrointestinal: Denies abdominal pain, Denies change in bowel habits, Denies diarrhea, Denies nausea and Denies vomiting Musculoskeletal Musculoskeletal: Reports arthralgias, Denies neck pain and Denies numbness Integumentary/Breasts Skin/Breast: Denies pruritus, Denies erythema, Denies rash and Denies wounds Neurologic Neurologic: Denies behavioral changes, Denies confusion, Denies dizziness, Denies frequent falls, Denies loss of vision, Denies numbness and Denies weakness Psychiatric Psychiatric: Denies anxiety, Denies behavioral changes, Denies confusion, Denies depression, Denies homicidal ideation and Denies suicidal ideation Endocrine Endocrine: Denies fatigue, Denies flushing and Denies palpitations Hematologic/Lymphatic Hematologic/Lymphatic: Denies easy bruising Allergic/Immunologic Allergic/Immunologic: Denies urticaria, Denies throat swelling and Denies wheezing Patient History Medical History Actinic keratosis (~2017) COPD (chronic obstructive pulmonary disease) Depression (Unknown) Former smoker Generalized headaches (Unknown) GERD (gastroesophageal reflux disease) (~2018) History of vertebral compression fracture Hyperlipemia (Unknown) Hypertension Morbid obesity with body mass index (BMI) of 40.0 to 49.9 Nocturnal hypoxemia Obstructive sleep apnea of adult Osteoporosis Pain of left breast Palpitations Postmenopausal Surgical History H/O: History of tonsillectomy Status post delivery Family History Father History of colon cancer Sister No problems noted. Social History marital status: household members: spouse lives independently: Yes caregiver/support person: No housing: house Smoking Status: Former smoker second hand exposure: No alcohol intake: current substance use type: does not use Smoking Status: Former smoker alcohol intake frequency: 0-2 drinks per day Substance Use Type: does not use Exam Narrative Exam Narrative: GENERAL: [81] year old patient appears stated age. Well- developed patient, in mild distress. HEAD: Atraumatic. Normocephalic. EYES: Pupils equal round and reactive. Extraocular motions intact. No scleral icterus. No injection or drainage. ENT: Nose without bleeding, purulent drainage. Throat without erythema, tonsillar hypertrophy or exudate. Airway patent. NECK: Trachea midline. Non tender CARDIOVASCULAR: Regular rate and rhythm without murmurs, gallops, or rubs. RESPIRATORY: Clear to auscultation. Breath sounds equal bilaterally. No wheezes, rales, or rhonchi. GASTROINTESTINAL: Abdomen soft, non-tender, nondistended. EXTREMITIES: No edema Minimal pain on palpation of right hip, no obvious deformity, shortening or external rotation. This was closed, isolated and neurovascularly intact BACK: Nontender without deformity or crepitance. No flank tenderness. NEURO: AOx3. SKIN: No rash or erythema of visible areas Initial Vital Signs Initial Vital Signs: Vital Signs Temperature 96.4 F L 05/23/21 15:06 Pulse Rate 87 05/23/21 15:06 Respiratory Rate 15 05/23/21 15:06 Blood Pressure 131/61 05/23/21 15:06 Pulse Oximetry 96 05/23/21 15:06 Course Orders Ordered: ED Orders 05/23/21 22:44 CT pelvis wo con Stat Vital Signs Vital signs: Vital Signs - 8 hr 05/23/21 22:25 05/24/21 00:01 Pulse Rate 61 65 Respiratory Rate 12 16 Blood Pressure 183/81 H 170/71 H Pulse Oximetry 98 97 MDM - Extremity Injury (Lower) Imaging Data Extremity x-ray #1: Radiologist's Impression: [address] [id number] ReportSigned Patient: Beatriz Lopez DMR#: [id number]: 2Acct:[id number]/Sex: 81 / FDate of Service: 05/23/21Loc: EDAccession Number: [id number] Procedure: XR hip w pel if done RT 2V Ordering Provider: Ladan Curran D.O. PROCEDURE: XR HIP W PEL IF DONE RT 2V INDICATIONS: right hip pain TECHNIQUE: Single view of the pelvis and additional view of the right hip was obtained. COMPARISON: None. FINDINGS: Bones: No fractures or dislocations. No suspicious bony lesions. The visualized pelvic ring appears intact. Moderate bilateral hip joint space narrowing present. Soft tissues: No suspicious soft tissue calcifications or masses. IMPRESSION: Mild bilateral acetabular joint space narrowing. No fracture or dislocation. Dictated by: Wilfred Noble M.D. on 05/23/2021 at 15:20 Approved by: Wilfred Noble M.D. on 05/23/2021 at 15:21 CT scan - abdomen/pelvis: Radiologist's Impression: No fracture or disclocation Discharge Plan Departure Patient Disposition: Home Clinical Impression: Acute hip pain Qualifiers: Laterality: right Qualified Code(s): M25.551 - Pain in right hip Instructions: DI for Hip Pain Activity Restrictions/Additional Instructions: *You have been diagnosed with [right hip pain after fall, very reassuring x-ray and CT scan as no fracture is noted] *What to do: *Please continue to take your regular medications as directed. [ ] New medication prescriptions sent to your pharmacy: [ ] [ ] New medication written as a paper prescription [ x] No new medications given *Please follow up with your primary care provider in 2-3 days, call for an appointment. Let them know you were seen in the Emergency Department and that we ask that you be seen in follow up. We will electronically transmit a record of today's note if your PCP is in our system *If you do not have a primary care provider please contact the [facility] Resource line at [phone]. They will ask some questions about your medical history and help get you set up with a doctor in the community. *Return to Emergency Department if you should have any new, worsening or co ncerning symptoms, such as [fever greater than 101 F, shaking chills, worsening pain, persistent vomiting or other bothersome symptoms] Prescriptions: No Action acetaminophen [Tylenol Extra Strength] 500 mg tablet 500 mg PO Q6H PRNRF: 0 cholecalciferol (vitamin D3) 400 unit capsule 1,200 unit PO DAILY RF: 0 aspirin 81 MG tablet,delayed release (DR/EC) 81 mg PO QDAY Qty: 0 RF: 0 fluticasone propion-salmeterol [Advair Diskus] 100-50 mcg/dose blister with device 1 inh inhalation BID Qty: 120 RF: 3 calcium carbonate-vitamin D3 [Caltrate with Vitamin D3] 600 mg(1,500mg) -800 unit tablet See Rx Instructions PO DAILY RF: 0 multivitamin tablet See Rx Instructions PO DAILY RF: 0 Lactase 1 tab PO ONCE HS PRNRF: 0 (DME) Resmed AirCurve 10 BI-PAP Qty: 1 RF: 0 Lutein 15 mg See Rx Instructions .ROUTE .COMPLEX RF: 0 magnesium 250 mg tablet 250 mg PO DAILY RF: 0 Disabled Parking Placard 1 each .Route ONCE Qty: 1 RF: 0 citalopram 20 mg tablet 20 mg PO QDAY Qty: 90 RF: 3 atorvastatin [Lipitor] 20 mg tablet 20 mg PO HS Qty: 90 RF: 3 metoprolol succinate 25 mg tablet extended release 24 hr See Rx Instructions PO BID Qty: 135 RF: 3 raloxifene 60 mg tablet 60 mg PO DAILY Qty: 90 RF: 3 albuterol sulfate [ProAir HFA] 90 mcg/actuation HFA aerosol inhaler 2 puff INHALATION Q6H PRN (Reason: shortness of breath or wheezing) Qty: 18 RF: 2 omeprazole 20 mg capsule,delayed release(DR/EC) 20 mg PO DAILY Qty: 90 RF: 3 Referrals: Ranjeet Pompa, DO [Primary Care Provider] -
--- NOTE | 2021-05-23 22:44 | DI.CT.S_ITS ---
PROCEDURE: CT PEL WO CON INDICATIONS: fall with severe R hip pain TECHNIQUE: Noncontrast 3 mm axial sections acquired through the bony pelvis, with coronal and sagittal reformatting. COMPARISON: [facility], CR, XR HIP W PEL IF DONE RT 2V, 05/23/2021, 15:08. [facility], CT, CT PEL WO CON, 05/28/2018, 1:55. FINDINGS: Image quality: Excellent. Bones: Minimal degenerative anterolisthesis of L4 on L5 with facet arthropathy resulting moderate canal stenosis. No acute fractures or dislocations. Soft tissues: Remote hysterectomy. Mild sigmoid diverticulosis. IMPRESSION: 1. No evidence of acute bony abnormality of the pelvis. 2. Moderate canal stenosis at L4-L5. 3. Mild sigmoid diverticulosis. Comment: Final report is concordant with preliminary interpretation provided by [facility]. Dictated by: Gustavo Mary M.D. on 05/24/2021 at 6:34 Approved by: Gustavo Mary M.D. on 05/24/2021 at 6:37
[2021-05-24 00:01] VITALS: BP 170/71; PULSE 65; RESP 16; O2SAT 97
== END 2021-05-24 00:11 | disposition home or self-care (01) ==
PROVIDERS: Emergency Provider Emergency Medicine; PCP Family Medicine
DX: M25.551 Pain in right hip (principal); W19.XXXA Unspecified fall, initial encounter
CPT/HCPCS: 72192; 73502; 99281; 99284

== ENCOUNTER → 2021-06-21 10:59 | Outpatient (CLI) | payer MEDICARE, OTHER, SELFPAY ==
--- NOTE | 2021-06-21 11:02 | DI.MRI.S_ITS ---
PROCEDURE: MR LUMBAR SPINE WO CON INDICATIONS: Sprain of unspecified parts of lumbar spine TECHNIQUE: Noncontrast sagittal T1 spin echo and T2 fast echo, sagittal STIR, axial T1 and T2 fast spin echo through the lumbar spine. In cases with scoliosis, additional coronal T2 fast spin echo may be performed. COMPARISON: [facility], CT, CT LUMBAR SPINE WO CON, 05/24/2018, 16:28. [facility], CR, XR LUMBAR SPINE 2 OR 3 VIEWS, 06/21/2018, 14:27. FINDINGS: Image quality: Excellent. Alignment and Curvature: 5 lumbar type vertebral bodies are present by CT. There is mild grade 1 retrolisthesis of L1 on L2 and L2 on L3. Mild grade 1 anterolisthesis of L4 on L5. Bone Marrow: Marrow is of normal overall signal. No acute vertebral body compression fractures. There is new moderate wedging of L1 which demonstrates bony cement material within it. Retropulsion at the superior L1 level is present, measuring roughly 13 mm anteroposterior. There is mild reactive signal within the endplates adjacent to the T12-L1, L1-L2, L2-L3, L3-L4, L4-L5, and L5-S1 intervertebral discs. Spinal Cord: Conus medullaris terminates at the T12-L1 disc space level. Visualized cord demonstrates normal signal and size. Paraspinous Soft Tissues: No paravertebral masses. T12-L1: Moderate disc height loss and desiccation. Mild diffuse disc bulge. Retropulsion at the superior L1 level. Mild epidural lipomatosis. Moderate canal stenosis. Mild bilateral foraminal stenosis. L1-L2: Moderate disc height loss and desiccation. Mild diffuse disc bulge. Mild facet and ligamentum flavum hypertrophy. Mild canal stenosis. Mild bilateral foraminal stenosis. L2-L3: Mild disc height loss. Moderate disc desiccation. Moderate diffuse disc bulge. Mild facet and ligamentum flavum hypertrophy. Mild canal stenosis. Mild bilateral foraminal stenosis. L3-L4: Moderate disc desiccation. Mild disc height loss and diffuse disc bulge. Mild facet and ligamentum flavum hypertrophy. Mild epidural lipomatosis. Mild canal stenosis. Mild bilateral foraminal stenosis. L4-L5: Moderate disc desiccation. Mild disc height loss and diffuse disc bulge. Moderate facet and ligamentum flavum hypertrophy. Moderate canal stenosis. Mild bilateral foraminal stenosis. L5-S1: Moderate disc desiccation. Mild diffuse disc bulge. Mild bilateral facet hypertrophy. No significant canal, or foraminal stenosis. IMPRESSION: 1. Postsurgical sequelae at L1. Retropulsion at L1. 2. Multilevel degenerative disc and facet disease, as well as ligamentum flavum hypertrophy and epidural lipomatosis. 3. Multilevel canal stenoses, worst at T12 L1 where there is moderate canal stenosis, predominantly secondary to retropulsion. Moderate canal stenosis at L4-L5 is present. 4. Mild multilevel foraminal stenoses. Dictated by: Nikhil Quezada M.D. on 06/23/2021 at 8:47 Approved by: Nikhil Quezada M.D. on 06/23/2021 at 8:52
== END ==
PROVIDERS: PCP Family Medicine; Referring Provider Orthopaedic Surgery; Visit Provider Orthopaedic Surgery
DX: S33.9XXA Sprain of unspecified parts of lumbar spine and pelvis, initial encounter (principal); M51.36 Other intervertebral disc degeneration, lumbar region; M51.37 Other intervertebral disc degeneration, lumbosacral region; M48.05 Spinal stenosis, thoracolumbar region; M48.061 Spinal stenosis, lumbar region without neurogenic claudication; E88.2 Lipomatosis, not elsewhere classified; X58.XXXA Exposure to other specified factors, initial encounter
CPT/HCPCS: 72148

== ENCOUNTER → 2021-07-24 14:11 | Outpatient (CLI) | payer MEDICARE, OTHER, SELFPAY ==
--- NOTE | 2021-07-24 | DI.US.S_ITS ---
PROCEDURE: US PERIPH VENOUS LOW EXTREM LT INDICATIONS: RULE OUT DEEP VEIN THROMBOSIS TECHNIQUE: Real-time imaging, as well as color and pulse Doppler interrogation, were performed of the lower extremity deep veins from the inguinal ligament to the popliteal fossa. COMPARISON: None. FINDINGS: The common femoral, femoral and popliteal veins are normally compressible, and free of intraluminal thrombus. Color and pulse Doppler demonstrate normal phasic intraluminal flow. There is normal augmentation response to distal compression maneuver. Ankle edema is noted. IMPRESSION: Negative for deep venous thrombosis. Dictated by: Miguel Arnold M.D. on 07/24/2021 at 16:02 Approved by: Miguel Arnold M.D. on 07/24/2021 at 16:04
== END ==
PROVIDERS: PCP Family Medicine; Referring Provider Physical Medicine & Rehabilitation; Visit Provider Physical Medicine & Rehabilitation
DX: M79.89 Other specified soft tissue disorders (principal)
CPT/HCPCS: 93971

== ENCOUNTER → 2021-07-25 13:35 | Outpatient (CLI) | payer MEDICARE, OTHER, SELFPAY ==
--- NOTE | 2021-07-25 | DI.MG.S_ITS ---
BILATERAL DIGITAL SCREENING MAMMOGRAM 3D/2D WITH CAD: 07/25/2021 CLINICAL: Routine screening. Comparison is made to exams dated: 07/23/2020 mammogram, 07/21/2019 mammogram, and 07/18/2018 mammogram - [facility]. There are scattered fibroglandular elements in both breasts. Current study was also evaluated with a Computer Aided Detection (CAD) system. There are benign calcifications in both breasts. There also are benign post operative findings in both breasts. No significant masses, calcifications, or other findings are seen in either breast. There has been no significant interval change. IMPRESSION: BENIGN There is no mammographic evidence of malignancy. A 1 year screening mammogram is recommended. This exam was interpreted at Station ID: [id number]. NOTE: For mammograms, a report in lay terms will be sent to the patient. Approximately 15% of breast malignancies will not be visualized mammographically. In the management of a palpable breast mass, a negative mammogram must not discourage biopsy of a clinically suspicious lesion. Electronically Signed By: Jose romero/delfina:07/25/2021 14:49:28 letter sent: Normal Exam ACR BI-RADS Category 2: Benign Finding(s) 3342F
== END ==
PROVIDERS: PCP Family Medicine; Referring Provider Family Medicine; Visit Provider Family Medicine
DX: Z12.31 Encounter for screening mammogram for malignant neoplasm of breast (principal)
CPT/HCPCS: 77063; 77067

== ENCOUNTER 2021-09-03 15:34 | Outpatient (RCR) | payer MEDICARE, OTHER, SELFPAY ==
--- NOTE | 2021-09-03 16:33 | PT-OP ANOTE ---
Pt arrived for her evaluation on 09/03/21, but noted that she has no complaints and I don't even really know why I'm here. After long discussion, pt noted that all of her complaints went away following an injection at L4-5 on 08/25/21. Pt now feels she can move around without pain, and is confident that she can strengthen and increase activity tolerance herself. Patient agreeable to just cancel all physical therapy appointments, and return with a new referral in the future if needed.
== END 2021-09-16 10:11 ==
LOC: PHYS 15:34
PROVIDERS: PCP Family Medicine; Referring Provider Physical Medicine & Rehabilitation; Visit Provider Physical Medicine & Rehabilitation
DX: M48.062 Spinal stenosis, lumbar region with neurogenic claudication (principal)

== ENCOUNTER → 2021-12-04 09:23 | Outpatient (CLI) | payer MEDICARE, OTHER, SELFPAY ==
--- NOTE | 2021-12-04 09:27 | DI.US.S_ITS ---
PROCEDURE: US THYROID INDICATIONS: MULTINODULAR GOITER TECHNIQUE: Real-time scanning was performed of the thyroid gland, with image documentation. COMPARISON: [facility], US, US THYROID, 09/12/2020, 10:40. FINDINGS: Right: Thyroid lobe measures 4.3 x 1.3 x 1.5 cm, and contains multiple small nodules. Left: Thyroid lobe measures 4.0 x 1.4 x 1.5 cm, and contains small nodules. Isthmus: 1.9 mm thick. Nodule number: 1 Location: Posterior left middle pole Size: 0.6 x 0.4 x 0.5 cm, previously 0.5 x 0.4 x 0.5 cm Composition: Solid Echogenicity: Hypoechoic Shape: wider than tall. Margins: Smooth Echogenic foci: None Total points: 4 ACR TI-RADS category: Moderately suspicious Nodule number: 2 Location: Left middle pole Size: 0.5 x 0.3 x 0.3 cm, previously 0.5 x 0.4 x 0.5 cm Composition: Predominantly cystic Echogenicity: Anechoic Shape: wider than tall. Margins: Smooth Echogenic foci: None Total points: 0 ACR TI-RADS category: Benign Nodule number: 3 Location: Right lower pole Size: 0.7 x 0.5 x 0.5 cm, previously 0.6 x 0.5 x 0.6 cm. Composition: Spongiform Echogenicity: Hypoechoic Shape: wider than tall. Margins: Smooth Echogenic foci: None Total points: 2 ACR TI-RADS category: Not suspicious Nodule number: 4 Location: Lateral right middle pole Size: 0.4 cm. Composition: Predominantly cystic Echogenicity: Anechoic Shape: wider than tall. Margins: Smooth Echogenic foci: None Total points: 0 ACR TI-RADS category: Benign Nodule number: 5 Location: Medial right middle pole Size: 0.6 x 0.5 x 0.5 cm, previously 0.8 x 0.3 x 0.5 cm Composition: Solid Echogenicity: Isoechoic Shape: wider than tall. Margins: Smooth Echogenic foci: None Total points: 3 ACR TI-RADS category: Mildly suspicious IMPRESSION: Multinodular thyroid, stable. No nodules are identified which are of sufficient size and appearance to warrant routine imaging follow-up. ACR TI-RADS definitions and recommendations: TI-RADS 1 (benign): 0 points. FNA not needed. TI-RADS 2 (not suspicious): 2 points. FNA not needed. TI-RADS 3 (mildly suspicious): 3 points. * FNA if 2.5 cm or larger, follow up if 1.5 cm or larger (at 1, 3, and 5 years). TI-RADS 4 (moderately suspicious): 4-6 points. * FNA if 1.5 cm or larger, follow up if 1 cm or larger (at 1, 2, 3, and 5 years). TI-RADS 5 (highly suspicious): 7 points or more. * FNA if 1 cm or larger, follow up if 0.5 cm or larger (every year for 5 years). Dictated by: Gustavo Mary M.D. on 12/04/2021 at 13:11 Approved by: Gustavo Mary M.D. on 12/04/2021 at 13:24
== END ==
PROVIDERS: PCP Family Medicine; Referring Provider Internal Medicine; Visit Provider Internal Medicine
DX: E04.2 Nontoxic multinodular goiter (principal)
CPT/HCPCS: 36415; 76536; 84439; 84443

== ENCOUNTER → 2022-03-11 07:25 | Outpatient (CLI) | payer MEDICARE, OTHER, SELFPAY ==
[2022-03-11 09:31] LABS: Alanine Aminotransferase 44 IU/L (<35); Albumin 4.4 g/dL (3.5-5.0); Albumin Globulin Ratio 1.8 (1.0-2.8); Alkaline Phosphatase 71 U/L (38-126); Aspartate Aminotransferase 49 IU/L (14-36); BUN Creatinine Ratio 31.8 (6-22); Bilirubin Total 0.4 mg/dL (0.2-1.3); Blood Urea Nitrogen 27 mg/dL (7-17); Calcium 9.9 mg/dL (8.4-10.2); Carbon Dioxide 25 mmol/L (22-32); Chloride 104 mmol/L (98-107); Estimated Glomerular Filt Rate > 60 mL/min (>60); Globulin 2.4 g/dL (1.7-4.1); Glucose 92 mg/dL (80-110); HEMOLYSIS < 15 (0-50); Potassium 4.5 mmol/L (3.4-5.1); Sodium 140 mmol/L (137-145); Total Protein 6.8 g/dL (6.3-8.2)
[2022-03-11 09:46] LABS: Free T4, Direct Thyroxine 0.97 ng/dL (0.78-2.19)
[2022-03-11 09:59] LABS: Thyroid Stimulating Hormone 0.908 uIU/mL (0.47-4.68)
== END ==
PROVIDERS: PCP Family Medicine; Referring Provider Family Medicine; Visit Provider Family Medicine
DX: E03.9 Hypothyroidism, unspecified (principal); E78.5 Hyperlipidemia, unspecified; I10 Essential (primary) hypertension
CPT/HCPCS: 36415; 80053; 84439; 84443

== ENCOUNTER → 2022-07-30 10:44 | Outpatient (CLI) | payer MEDICARE, OTHER, SELFPAY ==
--- NOTE | 2022-07-30 | DI.MG.S_ITS ---
BILATERAL DIGITAL SCREENING MAMMOGRAM 3D/2D WITH CAD: 07/30/2022 CLINICAL: Routine screening. Comparison is made to exams dated: 07/25/2021 mammogram, 07/23/2020 mammogram, and 07/21/2019 mammogram - [facility]. There are scattered areas of fibroglandular density in both breasts (category b / 25%-50% glandular tissue). Current study was also evaluated with a Computer Aided Detection (CAD) system. There are benign calcifications in both breasts. There also are benign post operative findings in both breasts. No significant masses, calcifications, or other findings are seen in either breast. There has been no significant interval change. IMPRESSION: BENIGN There is no mammographic evidence of malignancy. A 1 year screening mammogram is recommended. Based on the Tyrer Cuzick model (a risk assessment model) the patient's lifetime risk is 1.6% and her 10 year risk is 0.0%. According to the ACR, ACS, and NCCN guidelines, an annual breast MRI exam along with mammogram is recommended if the patient's lifetime risk is 20% or greater. This exam was interpreted at Station ID: [id number]. NOTE: For mammograms, a report in lay terms will be sent to the patient. Approximately 15% of breast malignancies will not be visualized mammographically. In the management of a palpable breast mass, a negative mammogram must not discourage biopsy of a clinically suspicious lesion. Electronically Signed By: Nacny denis/delfina:07/30/2022 11:18:55 letter sent: Normal Exam ACR BI-RADS Category 2: Benign Finding(s) 3342F
== END ==
PROVIDERS: PCP Family Medicine; Referring Provider Family Medicine; Visit Provider Family Medicine
DX: Z12.31 Encounter for screening mammogram for malignant neoplasm of breast (principal)
CPT/HCPCS: 77063; 77067

== ENCOUNTER 2023-03-18 08:23 | Outpatient (CLI) | payer MEDICARE, OTHER, SELFPAY ==
--- NOTE | 2023-03-18 08:28 | DI.RAD.S_ITS ---
PROCEDURE: PAIN L INTERLAMINAR/CAUDAL INJ INDICATIONS: SPINAL STENOSIS COMPARISON: None. FINDINGS: Fluoroscopic spot filming was performed to verify placement of spinal needles at the thoracolumbar junction level(s), as labeled on the films. Contrast is seen at the level of the needle and extending inferiorly. IMPRESSION: Needle placement as above. Dictated by: Nikhil Quezada M.D. on 03/18/2023 at 11:52 Transcribed by: NELI on 03/18/2023 at 11:53 Approved by: Nikhil Quezada M.D. on 03/18/2023 at 16:50
[2023-03-18 08:50] VITALS: BP 137/81; PULSE 66; RESP 18; TEMP 36.3; O2SAT 98
[2023-03-18 09:54] VITALS: BP 140/64; PULSE 63; RESP 15; O2SAT 100
[2023-03-18 09:59] VITALS: BP 139/66; PULSE 59; RESP 20; O2SAT 100
[2023-03-18] MEDS: IOPAMIDOL 15 ML VIAL 3 ML INJ (09:59)
[2023-03-18] MEDS: DEXAMETHASONE 10 MG/ML VIAL 20 MG INJ (10:00)
[2023-03-18] MEDS: BUPIVACAINE 0.25% (PF) VIAL 2 ML INJ (10:01)
[2023-03-18 10:04] VITALS: BP 157/82; PULSE 62; RESP 20; O2SAT 100
[2023-03-18 10:10] VITALS: BP 131/69; PULSE 60; RESP 18; O2SAT 99
--- NOTE | 2023-03-18 10:11 | PM.PROC.IR.1 ---
Date/Time/Diagnoses Date of procedure: 03/18/23 Time of procedure: 10:11 Pre-procedure diagnosis: Thoracic stenosis with HNP Post-procedure diagnosis: same Procedure Notes Procedure: Fluoroscopic guided, contrast controlled T12/L1 translaminar epidural steroid injection with conscious sedation. Indications: Beatriz is referred by Dr. Pompa for treatment of thoracic DDD/DJD with radiculopathy Physician: Chago Sheridan Total Fluoroscopy time (seconds): 8 Total sedation minutes: 0 Complications: none Procedure in detail & Post-procedure care: DESCRIPTION OF PROCEDURE Fluoroscopic guided, contrast controlled T12/L1 translaminar epidural steroid injection with conscious sedation. Following review of allergy review potential side effects and complications, including, but not necessarily limited to, infection, allergic reaction, local tissue breakdown, temporary as well as permanent nerve injury, stroke, paralysis and possible , the patient indicated that they understood and agreed to proceed. An informed consent document was signed by the patient, witnessed by the nurse, and placed in the patient's chart. Additionally other treatment options including modalities, medications and physical therapy were reviewed with the patient. After review of previous anaesthesic history and IV conscious sedation the patient was deemed safe to proceed with today's procedure with IV conscious sedation as ASA class II designation. Safety time-out was performed to confirm patient ID, procedure to be performed and site of procedure. IV sedation was deemed unnecessary and thus was not administered by the RN after DO order, titrated to patient comfort during the course of the procedure while the patient remained responsive to all verbal commands In the prone position, following sterile prep and drape of the thoracic region the T12/L1 translaminar space was identified fluoroscopically. The skin was anesthetized via 25 gauge 1.5inch needle with 1% lidocaine solution. At this point a 22gauge epidural needle was atraumatically introduced and advanced under fluoroscopic guidance into the region of the T12/L1 translaminar space depth was confirmed on lateral view. Radiographic data, including multiple fluoroscopic views of the thoracic spine, reveals spinal needle at the T12/L1 translaminar space. Lateral views then showed the placement of the needle in the epidural space. Subsequent view show contrast material flowing superiorly and inferiorly in the epidural space. No vascular or intrathecal uptake is observed. At this point using loss of resistance technique with saline and the epidural space was entered. This was confirmed followed negative aspiration and injection of approximately 1.5cc of Isovue 200 showed excellent epidural flow without vascular or intrathecal uptake. At this point, 1 cc of 1% lidocaine solution was admitted as a test dose and the patient was observed for an appropriate period of time without signs or symptoms of complications, including abdominal pain, shortness of breath, bilateral upper and lower extremity weakness, nausea and vomiting, prior to steroid injection. Subsequently, 3cc or 30mg of dexamethasone was then injected without incident. The patient tolerated the procedure well without signs of complications and subsequently was transferred to the recovery room for further monitoring. The patient was then transferred to the recovery area with their observed for an appropriate time after the injection. Patient reported a VAS score of 7 prior to the procedure and post-procedure VAS of 2.
== END 2023-03-18 10:16 | disposition home or self-care (01) ==
LOC: RAD 08:28
PROVIDERS: PCP Family Medicine; Referring Provider Physical Medicine & Rehabilitation; Visit Provider Physical Medicine & Rehabilitation
DX: M48.04 Spinal stenosis, thoracic region (principal); M51.14 Intervertebral disc disorders with radiculopathy, thoracic region; M47.24 Other spondylosis with radiculopathy, thoracic region
CPT/HCPCS: 62323; J0702; J1100; J2250; J3490

== ENCOUNTER → 2023-03-19 14:53 | Outpatient (CLI) | payer MEDICARE, OTHER, SELFPAY ==
[2023-03-19 15:35] LABS: Add Manual Diff / Slide Review NO; Basophils Absolute Auto 0 /uL (0-100); Basophils Percent Auto 0.1 % (0-2); Eosinophils Absolute Auto 0 /uL (0-450); Hematocrit 38.9 % (36-46); Hemoglobin 12.8 g/dL (12.0-16.0); Lymphocytes Absolute Auto 1300 /uL (1100-4500); Lymphocytes Percent Auto 9.6 % (25-40); Mean Corpuscular HGB Conc 32.8 % (30-36); Mean Corpuscular Hemoglobin 30.2 PG (26-34); Mean Corpuscular Volume 92.1 fL (80-100); Monocytes Absolute Auto 900 /uL (0-900); Monocytes Percent Auto 6.7 % (3-14); Neutrophils Absolute Auto 11400 /uL (1500-7000); Neutrophils Percent Auto 83.6 % (50-75); Platelet Count 310 X10^3/uL (150-400); Red Blood Cell Count 4.23 X10^6/uL (4.0-5.2); Red Cell Distribution Width 13.2 % (11.6-14.8); White Blood Cell Count 13.7 X10^3/uL (4.5-11.0)
[2023-03-19 16:04] LABS: Alanine Aminotransferase 115 IU/L (<35); Albumin 4.4 g/dL (3.5-5.0); Albumin Globulin Ratio 1.7 (1.0-2.8); Alkaline Phosphatase 94 U/L (38-126); Aspartate Aminotransferase 122 IU/L (14-36); BUN Creatinine Ratio 28.2 (6-22); Bilirubin Total 0.7 mg/dL (0.2-1.3); Blood Urea Nitrogen 22 mg/dL (7-17); Calcium 10.3 mg/dL (8.4-10.2); Carbon Dioxide 27 mmol/L (22-32); Chloride 103 mmol/L (98-107); Estimated Glomerular Filt Rate > 60 mL/min (>60); Globulin 2.6 g/dL (1.7-4.1); Glucose 121 mg/dL (80-110); HEMOLYSIS < 15 (0-50); Potassium 4.3 mmol/L (3.4-5.1); Sodium 137 mmol/L (137-145)
[2023-03-19 16:18] LABS: Free T4, Direct Thyroxine 0.95 ng/dL (0.78-2.19)
[2023-03-19 16:31] LABS: Thyroid Stimulating Hormone 0.253 uIU/mL (0.47-4.68)
== END ==
PROVIDERS: PCP Family Medicine; Referring Provider Family Medicine; Visit Provider Family Medicine
DX: E03.9 Hypothyroidism, unspecified (principal); E78.5 Hyperlipidemia, unspecified; I10 Essential (primary) hypertension
CPT/HCPCS: 36415; 80053; 84439; 84443; 85025

== ENCOUNTER → 2023-05-04 06:54 | Outpatient (CLI) | payer MEDICARE, OTHER, SELFPAY ==
[2023-05-04 08:10] LABS: Add Manual Diff / Slide Review NO; Basophils Absolute Auto 0 /uL (0-100); Basophils Percent Auto 0.8 % (0-2); Eosinophils Absolute Auto 400 /uL (0-450); Eosinophils Percent Auto 7.2 % (2-4); Hemoglobin 12.9 g/dL (12.0-16.0); Lymphocytes Absolute Auto 1600 /uL (1100-4500); Lymphocytes Percent Auto 32.4 % (25-40); Mean Corpuscular HGB Conc 33.9 % (30-36); Mean Corpuscular Hemoglobin 30.7 PG (26-34); Mean Corpuscular Volume 90.4 fL (80-100); Monocytes Absolute Auto 400 /uL (0-900); Monocytes Percent Auto 8.3 % (3-14); Neutrophils Absolute Auto 2500 /uL (1500-7000); Neutrophils Percent Auto 51.3 % (50-75); Platelet Count 265 X10^3/uL (150-400); White Blood Cell Count 4.9 X10^3/uL (4.5-11.0)
[2023-05-04 08:39] LABS: Alanine Aminotransferase 24 IU/L (<35); Albumin Globulin Ratio 1.7 (1.0-2.8); Alkaline Phosphatase 71 U/L (38-126); Aspartate Aminotransferase 28 IU/L (14-36); BUN Creatinine Ratio 29.8 (6-22); Bilirubin Total 0.9 mg/dL (0.2-1.3); Blood Urea Nitrogen 25 mg/dL (7-17); Calcium 9.6 mg/dL (8.4-10.2); Carbon Dioxide 30 mmol/L (22-32); Chloride 102 mmol/L (98-107); Estimated Glomerular Filt Rate > 60 mL/min (>60); Globulin 2.4 g/dL (1.7-4.1); Glucose 85 mg/dL (80-110); HEMOLYSIS < 15 (0-50); Potassium 4.6 mmol/L (3.4-5.1); Sodium 137 mmol/L (137-145); Total Protein 6.4 g/dL (6.3-8.2)
[2023-05-04 13:12] LABS: Free T3, Triiodothyronine Free 3.27 pg/mL (2.77-5.27); Free T4, Direct Thyroxine 1.02 ng/dL (0.78-2.19)
[2023-05-04 13:26] LABS: Thyroid Stimulating Hormone 0.541 uIU/mL (0.47-4.68)
[2023-05-05 05:44] LABS: x Labcorp Estim. Avg Glu (eAG) 117 mg/dL (.); x Labcorp Hemoglobin A1c 5.7 % (4.8-5.6)
== END ==
PROVIDERS: PCP Family Medicine; Referring Provider Family Medicine; Visit Provider Family Medicine
DX: E03.9 Hypothyroidism, unspecified (principal); E78.5 Hyperlipidemia, unspecified; I10 Essential (primary) hypertension
CPT/HCPCS: 80053; 84439; 84443; 84481; 85025

== ENCOUNTER → 2023-08-03 12:32 | Outpatient (CLI) | payer MEDICARE, OTHER, SELFPAY ==
--- NOTE | 2023-08-03 | DI.MG.S_ITS ---
BILATERAL DIGITAL SCREENING MAMMOGRAM 3D/2D WITH CAD: 08/03/2023 CLINICAL: Routine screening. Comparison is made to exams dated: 07/30/2022 mammogram, 07/25/2021 mammogram, and 07/23/2020 mammogram - [facility]. There are scattered areas of fibroglandular density in both breasts (category b / 25%-50% glandular tissue). Current study was also evaluated with a Computer Aided Detection (CAD) system. There are benign calcifications in both breasts. There also are benign post operative findings in both breasts. No significant masses, calcifications, or other findings are seen in either breast. There has been no significant interval change. IMPRESSION: BENIGN There is no mammographic evidence of malignancy. A 1 year screening mammogram is recommended. Based on the Tyrer Cuzick model (a risk assessment model) the patient's lifetime risk is 0.7% and her 10 year risk is 0.0%. According to the ACR, ACS, and NCCN guidelines, an annual breast MRI exam along with mammogram is recommended if the patient's lifetime risk is 20% or greater. This exam was interpreted at Station ID: [id number]. NOTE: For mammograms, a report in lay terms will be sent to the patient. Approximately 15% of breast malignancies will not be visualized mammographically. In the management of a palpable breast mass, a negative mammogram must not discourage biopsy of a clinically suspicious lesion. Electronically Signed By: Jose romero/delfina:08/08/2023 14:10:08 letter sent: Normal Exam ACR BI-RADS Category 2: Benign Finding(s) [id number]
== END ==
PROVIDERS: PCP Family Medicine; Referring Provider Family Medicine; Visit Provider Family Medicine
DX: Z12.31 Encounter for screening mammogram for malignant neoplasm of breast (principal)
CPT/HCPCS: 77063; 77067

== ENCOUNTER → 2023-08-11 13:20 | Outpatient (CLI) | payer MEDICARE, OTHER, SELFPAY ==
--- NOTE | 2023-08-11 13:22 | DI.RAD.S_ITS ---
PROCEDURE: XR LUMBAR SPINE MIN 4V INDICATIONS: BACK PAIN TECHNIQUE: 5 views of the lumbar spine were acquired, including bilateral oblique views. COMPARISON: [facility], CR, XR LUMBAR SPINE 2-3V, 06/09/2018, 14:25. FINDINGS: Bones: 5 nonrib-bearing vertebrae are present. Levocurvature of the lumbar spine. Grade 1 anterolisthesis of L4 on L5 Diffusely decreased osseous mineralization. Status post vertebroplasty L1 vertebral body compression deformity. Facet arthropathy, worse at L4-5 and L5-S1. Mild multilevel disc height loss with degenerative endplate changes and spurring. No new vertebral body compression fractures. No suspicious bony lesions. Soft tissues: Overlying bowel gas pattern is normal. No suspicious soft tissue calcifications. Atherosclerotic vascular calcifications. Oblique images: No definite pars defects, evaluation is limited secondary to decreased osseous mineralization. IMPRESSION: Degenerative changes of the lumbar spine, worse at L4-5 and L5-S1. Compression deformity of L1 vertebral body status post vertebroplasty. Decreased osseous mineralization. Dictated by: Kavon Leo M.D. on 08/11/2023 at 14:17 Approved by: Kavon Leo M.D. on 08/11/2023 at 14:19
== END ==
PROVIDERS: PCP Family Medicine; Referring Provider Physical Medicine & Rehabilitation; Visit Provider Physical Medicine & Rehabilitation
DX: M48.062 Spinal stenosis, lumbar region with neurogenic claudication (principal); M47.816 Spondylosis without myelopathy or radiculopathy, lumbar region; M47.817 Spondylosis without myelopathy or radiculopathy, lumbosacral region; M17.12 Unilateral primary osteoarthritis, left knee; J41.0 Simple chronic bronchitis; F32.9 Major depressive disorder, single episode, unspecified; S32.010S Wedge compression fracture of first lumbar vertebra, sequela
CPT/HCPCS: 72110; 99214

== ENCOUNTER 2023-11-24 10:29 | Emergency (ER) | payer MEDICARE, OTHER, SELFPAY ==
[2023-11-24 10:33] VITALS: BP 130/61; PULSE 68; RESP 16; TEMP 36.6; O2SAT 99; BMI 37.8
--- NOTE | 2023-11-24 10:45 | DI.US.S_ITS ---
PROCEDURE: US PERIPH VENOUS LOW EXTREM RT INDICATIONS: EDEMA TECHNIQUE: Real-time imaging, as well as color and pulse Doppler interrogation, were performed of the lower extremity deep veins from the inguinal ligament to the popliteal fossa, with documentation of the visualized calf veins. COMPARISON: None. FINDINGS: The common femoral, femoral, popliteal veins are normally compressible, and free of intraluminal thrombus. Color and pulse Doppler demonstrate normal phasic intraluminal flow. There is normal augmentation response to distal compression maneuver. The calf veins were not well visualized. Incidentally noted Simon's cyst measuring 6.4 x 2.9 cm. IMPRESSION: Negative for DVT. The calf veins were not well seen. Dictated by: Alex Pham M.D. on 11/24/2023 at 12:02 Approved by: Alex Pham M.D. on 11/24/2023 at 12:03
--- NOTE | 2023-11-24 11:03 | ED.EXTPRO ---
HPI - Extremity Problem <Allen Neumann PA-C - Last Filed: 11/24/23 16:40> General Chief complaint: Extremity Problem,Nontraumatic Stated complaint: rt leg px Time Seen by Provider: 11/24/23 10:57 History of Present Illness HPI Narrative: 83-year-old female with past medical history hyperglycemia, hypothyroidism, osteoporosis, GERD, COPD, obstructive sleep apnea, hyperlipidemia, lower back pain presents to the ED with 1 day of right sided calf pain. Patient states that the pain started upon awakening this morning, was spontaneous. Patient denies any trauma. Patient does endorse that she has a swollen ankle on the right side ever since she had a sprained ankle in 1992. Patient wears a brace for comfort for it. Patient denies any numbness, tingling, weakness or swelling. Patient did take 1000 mg of Tylenol and some tramadol this morning for pain. Patient denies any other symptoms including fevers, chills, chest pain, shortness of breath, nausea, vomiting, abdominal pain, lightheadedness, dizziness, syncope. Related Data Home Medications Medication Instructions Recorded Confirmed aspirin 81 mg tablet,delayed 81 mg PO QDAY ##0 02/22/17 11/11/23 release acetaminophen 500 mg tablet 500 mg PO Q6H PRN 06/15/18 11/11/23 (Tylenol Extra Strength) cholecalciferol (vitamin D3) 10 1,200 unit PO DAILY 11/30/18 11/11/23 mcg (400 unit) capsule Lactase 1 tab PO ONCE HS PRN 06/19/19 11/11/23 Lutein 15 mg See Rx Instructions .Route .COMPLEX 06/19/19 11/11/23 Resmed AirCurve 10 BI-PAP #1 ea 06/19/19 11/11/23 calcium carbonate 600 mg-vitamin See Rx Instructions PO DAILY 06/19/19 11/11/23 D3 20 mcg (800 unit) tablet (Caltrate with Vitamin D3) magnesium 250 mg tablet 250 mg PO DAILY 06/19/19 11/11/23 multivitamin See Rx Instructions PO DAILY 06/19/19 11/11/23 ibuprofen 200 mg tablet 400 mg PO Q8H 11/11/22 11/11/23 omeprazole 20 mg capsule,delayed 20 mg PO DAILY 11/11/22 11/11/23 release metoprolol succinate 25 mg See Rx Instructions .Route .COMPLEX 07/12/23 11/11/23 tablet,extended release 24 hr Previous Rx's Medication Instructions Recorded Disabled Parking Placard 1 each .Route ONCE #1 ea 06/19/19 albuterol sulfate 90 mcg/actuation 2 puff inhalation Q6H PRN 03/30/23 aerosol inhaler (ProAir HFA) shortness of breath or wheezing #18 grams citalopram 20 mg tablet See Rx Instructions .Route 04/21/23 .COMPLEX #135 tabs levothyroxine 75 mcg capsule 75 mcg PO DAILY #90 caps 05/14/23 atorvastatin 20 mg tablet (Lipitor) 20 mg PO HS #90 tabs 05/31/23 fluticasone 100 mcg-salmeterol 50 1 inh inhalation BID #120 ea 08/13/23 mcg/dose blistr powdr for inhalation (Advair Diskus) raloxifene 60 mg tablet 60 mg PO DAILY #90 tabs 08/30/23 gabapentin 100 mg capsule 100 mg PO TID #90 caps 11/11/23 tramadol 50 mg tablet 50 mg PO TID PRN pain #90 tabs 11/11/23 Allergies Allergy/AdvReac Type Severity Reaction Status Date / Time bupropion AdvReac Intermediate Personality Verified 11/11/23 14:19 change Review of Systems <Allen Neumann PA-C - Last Filed: 11/24/23 16:40> Constitutional Constitutional: Denies chills, Denies fatigue, Denies fever(s), Denies frequent falls, Denies lethargy and Denies weakness Eyes Eyes: Denies change in vision, Denies eye discharge, Denies irritation and Denies loss of vision ENT Ears, Nose, Mouth, and Throat: Denies change in voice, Denies dizziness, Denies neck pain, Denies sore throat and Denies throat swelling Cardiovascular Cardiovascular: Denies chest pain, Denies irregular heart rhythm, Denies lightheadedness, Denies palpitations, Denies dyspnea, Denies dyspnea on exertion and Denies orthopnea Respiratory Respiratory: Denies cough, Denies dyspnea, Denies dyspnea on exertion and Denies wheezing Gastrointestinal Gastrointestinal: Denies abdominal pain, Denies change in bowel habits, Denies diarrhea, Denies nausea and Denies vomiting Musculoskeletal Musculoskeletal: Denies neck pain and Denies numbness Comments: Right calf pain, redness Integumentary/Breasts Skin/Breast: Denies pruritus, Denies erythema, Denies rash and Denies wounds Neurologic Neurologic: Denies behavioral changes, Denies confusion, Denies dizziness, Denies frequent falls, Denies loss of vision, Denies numbness and Denies weakness Psychiatric Psychiatric: Denies anxiety, Denies behavioral changes, Denies confusion, Denies depression, Denies homicidal ideation and Denies suicidal ideation Endocrine Endocrine: Denies fatigue, Denies flushing and Denies palpitations Hematologic/Lymphatic Hematologic/Lymphatic: Denies easy bruising Allergic/Immunologic Allergic/Immunologic: Denies urticaria, Denies throat swelling and Denies wheezing Patient History <Allen Neumann PA-C - Last Filed: 11/24/23 16:40> Medical History (Updated 11/24/23 @ 12:25 by Allen Neumann PA-C) Right ankle pain Hyperglycemia Leukocytosis Elevated liver function tests Compression fracture of L1 lumbar vertebra Gait instability Spinal stenosis, 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 Social History marital status: household members: spouse lives independently: Yes caregiver/support person: No housing: house Smoking Status: Former smoker second hand exposure: No alcohol intake: current substance use type: does not use Smoking Status: Former smoker alcohol intake frequency: 0-2 drinks per day Substance Use Type: does not use Exam <Allen Neumann PA-C - Last Filed: 11/24/23 16:40> Narrative Exam Narrative: Const General:?cooperative, healthy appearing and comfortable HENMT Head:?normal to inspection Ears:?hearing grossly normal bilaterally Nose:?external nose normal Face and sinus:?normal facial exam and sinuses nontender Mouth:?oral mucosae normal Throat:?posterior oropharynx normal Eyes General:?appearance normal, both eyes and all related structures Neck Neck:?normal visual inspection and no lymphadenopathy noted Resp Effort & Inspection:?normal respiratory effort Auscultation:?clear to auscultation bilaterally Cardio Rate:?regular rate Rhythm:?regular rhythm Musculoskeletal/integumentary There is very slight swelling of the right lower leg compared to the left. Tenderness to palpation of the calf. There is some erythema extending from above the ankle to the calf. Skin is intact. Strength and sensation is intact. There is full range of motion. Patient is neurovascularly intact. Neuro General:?patient alert, patient awake and patient oriented x3 Initial Vital Signs Initial Vital Signs: Vital Signs Temperature 97.9 F 11/24/23 10:33 Pulse Rate 68 11/24/23 10:33 Respiratory Rate 16 11/24/23 10:33 Blood Pressure 130/61 11/24/23 10:33 Pulse Oximetry 99 11/24/23 10:33 Oxygen Delivery Method Room Air 11/24/23 10:33 <Jud Celis DO - Last Filed: 11/29/23 07:30> Initial Vital Signs Initial Vital Signs: Vital Signs Temperature 97.9 F 11/24/23 10:33 Pulse Rate 68 11/24/23 10:33 Respiratory Rate 16 11/24/23 10:33 Blood Pressure 130/61 11/24/23 10:33 Pulse Oximetry 99 11/24/23 10:33 Oxygen Delivery Method Room Air 11/24/23 10:33 Course <Allen Neumann PA-C - Last Filed: 11/24/23 16:40> Orders Ordered: ED Orders 11/24/23 10:45 US perip venous low extrem rt Stat Vital Signs Vital signs: Vital Signs - 8 hr 11/24/23 10:33 11/24/23 12:39 Temperature 97.9 F 98 F Pulse Rate 68 65 Respiratory Rate 16 18 Blood Pressure 130/61 135/63 Pulse Oximetry 99 99 Oxygen Delivery Method Room Air Room Air <Jud Celis DO - Last Filed: 11/29/23 07:30> Orders Ordered: ED Orders 11/24/23 10:45 US periph venous low extrem rt Stat Vital Signs Vital signs: Vital Signs - 8 hr 11/24/23 10:33 11/24/23 12:39 Temperature 97.9 F 98 F Pulse Rate 68 65 Respiratory Rate 16 18 Blood Pressure 130/61 135/63 Pulse Oximetry 99 99 Oxygen Delivery Method Room Air Room Air MDM - Extremity (Nontraumatic) <Allen Neumann PA-C - Last Filed: 11/24/23 16:40> MDM Narrative Medical decision making narrative: 83-year-old female with past medical history hyperglycemia, hypothyroidism, osteoporosis, GERD, COPD, obstructive sleep apnea, hyperlipidemia, lower back pain presents to the ED with 1 day of right sided calf pain. Concern for DVT versus cellulitis versus other musculoskeletal sprain/strain versus other. Will obtain ultrasound of the right lower extremity, reassess. Ultrasound without evidence of DVT. Ultrasound does show a Simon cyst, which could likely be causing patient's symptoms. Patient also has some erythema of the lower extremity, suspicious for cellulitis. Will treat with antibiotics. Discussed findings and plan with patient. Patient agrees to follow-up with Dr. Sheridan, her PCP for further evaluation as soon as possible. ED return precautions were discussed with patient. Patient verbalized understanding. Medical records reviewed: Yes Discharge Plan Departure Patient Disposition: Home Clinical Impression: Pain of right calf Instructions: DI for Cellulitis -- Adult, DI for Simon Cyst Activity Restrictions/Additional Instructions: You were evaluated in the ED today for right-sided calf pain. Your ultrasound did not show any DVTs or blood clots. The ultrasound did show a Simon cyst in the back of the right knee which could likely be causing your symptoms. You were also being prescribed a antibiotic for the redness of the right lower leg which could be caused due to a skin infection or cellulitis. Please take the antibiotics as prescribed. Please follow-up with your PCP, Dr. Sheridan for further evaluation and treatment. Return to the ED if you have worsening symptoms, chest pain, shortness of breath. Prescriptions: No Action acetaminophen [Tylenol Extra Strength] 500 mg tablet 500 mg PO Q6H PRN cholecalciferol (vitamin D3) 400 unit capsule 1,200 unit PO DAILY aspirin 81 MG tablet,delayed release (DR/EC) 81 mg PO QDAY Qty: 0 albuterol sulfate [ProAir HFA] 90 mcg/actuation HFA aerosol inhaler 2 puff INHALATION Q6H PRN (Reason: shortness of breath or wheezing) Qty: 18 2RF citalopram 20 mg tablet See Rx Instructions .ROUTE .COMPLEX Qty: 135 3RF Dose Instruction: TAKE ONE AND ONE-HALF TABLETS (30 MG) DAILY (NEEDS TO SEE PRIMARY CARE PHYSICIAN) Rx Instructions: TAKE ONE AND ONE-HALF TABLETS (30 MG) DAILY (NEEDS TO SEE PRIMARY CARE PHYSICIAN) levothyroxine 75 mcg capsule 75 mcg PO DAILY Qty: 90 3RF atorvastatin [Lipitor] 20 mg tablet 20 mg PO HS Qty: 90 1RF fluticasone propion-salmeterol [Advair Diskus] 100-50 mcg/dose blister with device 1 inh inhalation BID Qty: 120 3RF raloxifene 60 mg tablet 60 mg PO DAILY Qty: 90 3RF calcium carbonate-vitamin D3 [Caltrate with Vitamin D3] 600 mg(1,500mg) -800 unit tablet See Rx Instructions PO DAILY Patient Comments: 1/2 tab PO DAILY Rx Instructions: 1/2 tab PO DAILY multivitamin tablet See Rx Instructions PO DAILY Patient Comments: 1/2 tab PO DAILY Rx Instructions: 1/2 tab PO DAILY Lactase 1 tab PO ONCE HS PRN (DME) Resmed AirCurve 10 BI-PAP Qty: 1 Dose Instruction: As directed Rx Instructions: As directed Lutein 15 mg See Rx Instructions .ROUTE .COMPLEX Patient Comments: 1 softgel PO daily Rx Instructions: 1 softgel PO daily magnesium 250 mg tablet 250 mg PO DAILY Disabled Parking Placard 1 each .Route ONCE Qty: 1 0RF Rx Instructions: Patient qualifies for Disabled Parking Placard metoprolol succinate 25 mg tablet extended release 24 hr See Rx Instructions .ROUTE .COMPLEX Dose Instruction: TAKE ONE-HALF (1/2) TABLET IN THE MORNING AND 1 TABLET IN THE EVENING Rx Instructions: 1 TABLET IN THE EVENING gabapentin 100 mg capsule 100 mg PO TID Qty: 90 2RF tramadol 50 mg tablet 50 mg PO TID PRN (Reason: pain) Qty: 90 1RF ibuprofen 200 mg tablet 400 mg PO Q8H omeprazole 20 mg capsule,delayed release(DR/EC) 20 mg PO DAILY Referrals: Ranjeet Pompa DO [Primary Care Provider] - Stand Alone Forms: Patient Portal/API ED Sign-out <Jud Celis DO - Last Filed: 11/29/23 07:30> Cosign ED Attending Cosignature Attestation: I was available for consultation.
[2023-11-24 12:39] VITALS: BP 135/63; PULSE 65; RESP 18; TEMP 36.6; O2SAT 99
== END 2023-11-24 12:40 | disposition home or self-care (01) ==
PROVIDERS: Emergency Provider Student in an Organized Health Care Education/Training Program; PCP Family Medicine
DX: M79.604 Pain in right leg (principal)
CPT/HCPCS: 72110; 73562; 93971; 99283

== ENCOUNTER → 2023-11-24 12:37 | Outpatient (CLI) | payer MEDICARE, OTHER, SELFPAY ==
--- NOTE | 2023-11-24 12:41 | DI.RAD.S_ITS ---
PROCEDURE: XR LUMBAR SPINE MIN 4V INDICATIONS: low back pain TECHNIQUE: 5 views of the lumbar spine acquired, including flexion and extension views. COMPARISON: [facility], , XR LUMBAR SPINE MIN 4V, 08/11/2023, 13:24. FINDINGS: Bones: L1 compression fracture with vertebroplasty noted. Short track segment extending into the left pedicle remains unchanged. Under treated T12 compression fracture noted as well. Degenerative disc disease and facet arthropathy in the lower lumbar spine without new fracture. Oblique images are unremarkable. Convex right thoracolumbar scoliosis Soft tissues: Overlying bowel gas pattern is normal. No suspicious soft tissue calcifications. IMPRESSION: Stable osteopenic T12 and L1 compression fractures with L1 vertebroplasty. Degenerative disc disease and arthropathy in the lower lumbar spine Approved by: Wilfred Noble M.D. on 11/24/2023 at 17:52
--- NOTE | 2023-11-24 12:41 | DI.RAD.S_ITS ---
PROCEDURE: XR KNEE LT 3V INDICATIONS: left knee djd TECHNIQUE: 3 views of the knee were acquired. COMPARISON: None. FINDINGS: Bones: No fractures or dislocations. Tricompartmental osteoarthritic changes with tricompartmental osteophyte formation and moderate to severe joint space narrowing of the medial compartment. No suspicious bony lesions. Soft tissues: Small joint effusion. No suspicious soft tissue calcifications. IMPRESSION: Moderate to severe osteoarthritic changes of the knee, most pronounced within the medial compartment. Dictated by: Kavon Leo M.D. on 11/24/2023 at 14:01 Approved by: Kavon Leo M.D. on 11/24/2023 at 14:01
== END ==
PROVIDERS: PCP Family Medicine; Referring Provider Physical Medicine & Rehabilitation; Visit Provider Physical Medicine & Rehabilitation
DX: M17.12 Unilateral primary osteoarthritis, left knee (principal); M47.816 Spondylosis without myelopathy or radiculopathy, lumbar region; M51.36 Other intervertebral disc degeneration, lumbar region; M48.55XA Collapsed vertebra, not elsewhere classified, thoracolumbar region, initial encounter for fracture; M54.50 Low back pain, unspecified; G89.29 Other chronic pain
CPT/HCPCS: 72110; 73562

== ENCOUNTER 2023-12-03 13:09 | Emergency (ER) | payer MEDICARE, OTHER, SELFPAY ==
[2023-12-03 13:22] VITALS: BP 106/52; PULSE 83; RESP 14; TEMP 36.8; O2SAT 99; BMI 36.6
--- NOTE | 2023-12-03 13:25 | DI.RAD.S_ITS ---
PROCEDURE: XR ANKLE RT MIN 3V INDICATIONS: rolled right ankle. unable to bear weight TECHNIQUE: 3 views of the ankle were acquired. COMPARISON: None. FINDINGS: Bones: No fractures or dislocations. Ankle mortise is normally aligned and intact. No suspicious bony lesions. Plantar calcaneal enthesophyte. Degenerative changes at the dorsal aspect of the midfoot. Shawn deformity. Soft tissues: No tibiotalar joint effusion. Achilles tendon appears normal. IMPRESSION: No definite radiographic abnormality. However, evaluation is mildly limited by suboptimal positioning and degenerative changes at the dorsal aspect of the midfoot. If there is high clinical concern for internal derangement recommend cross-sectional imaging with CT. Approved by: Nery Severino M.D. on 12/03/2023 at 15:01
--- NOTE | 2023-12-03 13:26 | DI.RAD.S_ITS ---
PROCEDURE: XR FOOT RT MIN 3V INDICATIONS: rolled right ankle, unable to bear weight, caught big toe TECHNIQUE: 3 views of the foot were acquired. COMPARISON: None. FINDINGS: Bones: No fractures or dislocations. No suspicious bony lesions. Degenerative changes at the dorsal midfoot. Plantar calcaneal enthesophyte. Shawn deformity. Soft tissues: No tibiotalar joint effusion. Achilles tendon appears normal. IMPRESSION: No acute bony abnormality. If symptoms persist with conservative management, consider cross-sectional imaging such as CT or MRI. Dictated by: Nery Severino M.D. on 12/03/2023 at 15:02 Approved by: Nery Severino M.D. on 12/03/2023 at 15:03
--- NOTE | 2023-12-03 13:41 | ED.LOWEXIN ---
HPI - Extremity Injury (Lower) <Scott Gil PA-C - Last Filed: 12/03/23 15:43> General Chief Complaint: Extremity Injury, Lower Stated Complaint: twisted rt ankle Time Seen by Provider: 12/03/23 13:28 Source: patient Mode of arrival: Family Vehicle History of Present Illness HPI Narrative: This is a 83-year-old female presents emergency department due to right ankle and toe pain after tripping and rolling her right ankle. She states that she was a chronic ankle sprain this caused her some discomfort over the years for the last 20 years and has not established marketing communications leader. Surgery has been discussed but patient states that she does not want it. Denies any numbness to the toes or feet. Pain is primarily to the medial malleolus of the right ankle. Related Data Home Medications Medication Instructions Recorded Confirmed aspirin 81 mg tablet,delayed 81 mg PO QDAY ##0 02/22/17 12/01/23 release acetaminophen 500 mg tablet 500 mg PO Q6H PRN 06/15/18 12/01/23 (Tylenol Extra Strength) cholecalciferol (vitamin D3) 10 1,200 unit PO DAILY 11/30/18 12/01/23 mcg (400 unit) capsule Lactase 1 tab PO ONCE HS PRN 06/19/19 12/01/23 Lutein 15 mg See Rx Instructions .Route .COMPLEX 06/19/19 12/01/23 Resmed AirCurve 10 BI-PAP #1 carl 06/19/19 12/01/23 calcium carbonate 600 mg-vitamin See Rx Instructions PO DAILY 06/19/19 12/01/23 D3 20 mcg (800 unit) tablet (Caltrate with Vitamin D3) magnesium 250 mg tablet 250 mg PO DAILY 06/19/19 12/01/23 multivitamin See Rx Instructions PO DAILY 06/19/19 12/01/23 ibuprofen 200 mg tablet 400 mg PO Q8H 11/11/22 12/01/23 omeprazole 20 mg capsule,delayed 20 mg PO DAILY 11/11/22 12/01/23 release metoprolol succinate 25 mg See Rx Instructions .Route .COMPLEX 07/12/23 12/01/23 tablet,extended release 24 hr Previous Rx's Medication Instructions Recorded Disabled Parking Placard 1 each .Route ONCE #1 carl 06/19/19 albuterol sulfate 90 mcg/actuation 2 puff inhalation Q6H PRN 03/30/23 aerosol inhaler (ProAir HFA) shortness of breath or wheezing #18 grams citalopram 20 mg tablet See Rx Instructions .Route 04/21/23 .COMPLEX #135 tabs levothyroxine 75 mcg capsule 75 mcg PO DAILY #90 caps 05/14/23 fluticasone 100 mcg-salmeterol 50 1 inh inhalation BID #120 ea 08/13/23 mcg/dose blistr powdr for inhalation (Advair Diskus) raloxifene 60 mg tablet 60 mg PO DAILY #90 tabs 08/30/23 gabapentin 100 mg capsule 100 mg PO TID #90 caps 11/11/23 tramadol 50 mg tablet 50 mg PO TID PRN pain #90 tabs 11/11/23 atorvastatin 20 mg tablet (Lipitor) 20 mg PO HS #90 tabs 11/30/23 Allergies Allergy/AdvReac Type Severity Reaction Status Date / Time bupropion AdvReac Intermediate Personality Verified 12/01/23 13:54 change Review of Systems <Scott Gil PA-C - Last Filed: 12/03/23 15:43> Review of Systems Narrative: GENERAL: Denies chills, fatigue, malaise, fever, sweats. HEENT: Denies sinus pain, ear pain, sore throat, difficulty swallowing, dizziness. RESPIRATORY: Denies dyspnea, cough, wheezing, hemoptysis, sputum. CARDIOVASCULAR: Denies chest pain, palpitations, orthopnea, edema, GASTROINTESTINAL: Denies nausea, vomiting, abdominal pain, diarrhea, constipation, melena. : Denies dysuria, frequency, incontinence, hematuria, urinary retention. MUSCULOSKELETAL: Reports right ankle pain SKIN: Denies rash, skin lesions, or other NEUROLOGIC: Denies weakness, headache, numbness, change in speech, confusion, seizures, incoordination. PSYCHIATRIC: No concerning psychosocial issues. 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 Social History marital status: household members: spouse lives independently: Yes caregiver/support person: No housing: house Smoking Status: Former smoker second hand exposure: No alcohol intake: current substance use type: does not use Smoking Status: Former smoker alcohol intake frequency: 0-2 drinks per day Substance Use Type: does not use Exam <Scott Gil PA-C - Last Filed: 12/03/23 15:43> Narrative Exam Narrative: GENERAL: Well-developed patient, in mild distress. HEAD: Atraumatic. Normocephalic. EYES: Pupils equal round and reactive. Extraocular motions intact. No scleral icterus. No injection or drainage. ENT: Nose without bleeding, purulent drainage. Throat without erythema, tonsillar hypertrophy or exudate. Airway patent. NECK: Trachea midline. Non tender CARDIOVASCULAR: Regular rate and rhythm without murmurs, gallops, or rubs. RESPIRATORY: Clear to auscultation. Breath sounds equal bilaterally. No wheezes, rales, or rhonchi. GASTROINTESTINAL: Abdomen soft, non-tender, nondistended. EXTREMITIES: Tenderness to palpation primarily in the medial malleolus of the right ankle. Neurovascularly intact throughout. 2+ dorsalis pedis pulse. BACK: Nontender without deformity or crepitance. No flank tenderness. NEURO: AOx3. SKIN: No rash or erythema of visible areas Initial Vital Signs Initial Vital Signs: Vital Signs Temperature 98.3 F 12/03/23 13:22 Pulse Rate 83 12/03/23 13:22 Respiratory Rate 14 12/03/23 13:22 Blood Pressure 106/52 L 12/03/23 13:22 Pulse Oximetry 99 12/03/23 13:22 Oxygen Delivery Method Room Air 12/03/23 13:22 <DO Triny Michele Last Filed: 12/03/23 15:58> Initial Vital Signs Initial Vital Signs: Vital Signs Temperature 98.3 F 12/03/23 13:22 Pulse Rate 83 12/03/23 13:22 Respiratory Rate 14 12/03/23 13:22 Blood Pressure 106/52 L 12/03/23 13:22 Pulse Oximetry 99 12/03/23 13:22 Oxygen Delivery Method Room Air 12/03/23 13:22 Course <Scott Gil PA-C - Last Filed: 12/03/23 15:43> Orders Ordered: ED Orders 12/03/23 13:25 XR ankle RT min 3V Stat 12/03/23 13:26 XR foot RT min 3V Stat Vital Signs Vital signs: Vital Signs - 8 hr 12/03/23 13:22 12/03/23 14:50 Temperature 98.3 F Pulse Rate 83 75 Respiratory Rate 14 20 Blood Pressure 106/52 L 110/59 L Pulse Oximetry 99 98 Oxygen Delivery Method Room Air Room Air <DO Triny Michele Last Filed: 12/03/23 15:58> Orders Ordered: ED Orders 12/03/23 13:25 XR ankle RT min 3V Stat 12/03/23 13:26 XR foot RT min 3V Stat Vital Signs Vital signs: Vital Signs - 8 hr 12/03/23 13:22 12/03/23 14:50 Temperature 98.3 F Pulse Rate 83 75 Respiratory Rate 14 20 Blood Pressure 106/52 L 110/59 L Pulse Oximetry 99 98 Oxygen Delivery Method Room Air Room Air MDM - Extremity Injury (Lower) <SUSIE Sheppard Last Filed: 12/03/23 15:43> Imaging Data Extremity x-ray #1: Radiologist's Impression: [address] [address] XRay Report Signed Patient: Beatriz Lopez MR#: [id number] : 1940 Acct:[id number] Age/Sex: 83 / F Date of Service: 12/03/23 Loc: ED Accession Number: [id number] Procedure: XR foot RT min 3V Ordering Provider: Scott Gil P.A-C PROCEDURE: XR FOOT RT MIN 3V INDICATIONS: rolled right ankle, unable to bear weight, caught big toe TECHNIQUE: 3 views of the foot were acquired. COMPARISON: None. FINDINGS: Bones: No fractures or dislocations. No suspicious bony lesions. Degenerative changes at the dorsal midfoot. Plantar calcaneal enthesophyte. Shawn deformity. Soft tissues: No tibiotalar joint effusion. Achilles tendon appears normal. IMPRESSION: No acute bony abnormality. If symptoms persist with conservative management, consider cross-sectional imaging such as CT or MRI. Dictated by: Nery Severino M.D. on 12/03/2023 at 15:02 Approved by: Nery Severino M.D. on 12/03/2023 at 15:03 Extremity x-ray #2: Radiologist's Impression: [address] [address] XRay Report Signed Patient: Beatriz Lopez MR#: [id number] : 1940 Acct:[id number] Age/Sex: 83 / F Date of Service: 12/03/23 Loc: ED Accession Number: [id number] Procedure: XR ankle RT min 3V Ordering Provider: Scott Gil P.A-C PROCEDURE: XR ANKLE RT MIN 3V INDICATIONS: rolled right ankle. unable to bear weight TECHNIQUE: 3 views of the ankle were acquired. COMPARISON: None. FINDINGS: Bones: No fractures or dislocations. Ankle mortise is normally aligned and intact. No suspicious bony lesions. Plantar calcaneal enthesophyte. Degenerative changes at the dorsal aspect of the midfoot. Shawn deformity. Soft tissues: No tibiotalar joint effusion. Achilles tendon appears normal. IMPRESSION: No definite radiographic abnormality. However, evaluation is mildly limited by suboptimal positioning and degenerative changes at the dorsal aspect of the midfoot. If there is high clinical concern for internal derangement recommend cross-sectional imaging with CT. Approved by: Nery Severino M.D. on 12/03/2023 at 15:01 [facility] Narrative Medical decision making narrative: This is a 83 year female presents emergency department complaining of right foot and ankle pain after rolling her ankle last night. She was neurovascularly intact throughout. She she does have a history of a old ankle sprain that is causing her intermittent pain for the last 25 years. Right ankle x-ray negative for fractures. Right foot x-ray also negative but did say evaluation was mildly limited by suboptimal positioning. Patient has not established marketing communications leader that she plans on following up with. Recommended she follow up with the Podiatry for further evaluation and possible advanced imaging if appropriate. Recommended supportive and conservative care. CC: Right ankle sprain Complicating co-morbidities: Osteoporosis Data collected from: Previous notes Medical records reviewed: Patient was seen here about a week ago due to pain in the right calf. Past history of hyperglycemia, hypothyroidism, osteoporosis. Ultrasound ordered which was negative for DVT but did show a Simon's cyst. Differential considered, but not limited to: Right ankle sprain, tarsal fracture, tibia fracture, fibula fracture Exam documented above, pertinent findings include: Tenderness to palpation to the medial malleolus of the right ankle Lab Test results independently reviewed as above. Pertinent findings: Imaging studies independently reviewed: Right ankle x-ray negative for any bony abnormalities. Right foot x-rate negative as well although did state that there was some difficulty obtaining the appropriate imaging. Recommended follow up with possible CT pain continues with her marketing communications leader. Scores Used: None MIPS Elements:None Consultations:None Treatments:None Re-evaluations: Discussed patient results of x-rays with the patient. Discussion: Discussed plan with the patient was comfortable with the plan. Diagnosis: Right ankle sprain Disposition: see below, along with detailed discharge instructions that have been reviewed with patient as well as indications for ED re-evaluation and additional outpatient follow up Discharge Plan Departure Patient Disposition: Home Clinical Impression: Right ankle sprain Instructions: DI for Ankle Sprain Activity Restrictions/Additional Instructions: Thank you for coming to the [facility] Emergency Department today. As we discussed your right ankle and foot x-rays were negative for any fractures or other bony abnormalities. Please follow up with the marketing communications leader as he was planned possible advanced imaging if the pain continues. Please treat this as you would a ankle sprain with rest, ice, compression, elevation. I hope you feel better soon. Please follow up with your primary care provider within a week if your symptoms continue. If you do not have a primary care provider please contact the [facility] Resource line at [phone]. They will ask some questions about your medical history and help you get set up with a provider in the community. Prescriptions: No Action acetaminophen [Tylenol Extra Strength] 500 mg tablet 500 mg PO Q6H PRN cholecalciferol (vitamin D3) 400 unit capsule 1,200 unit PO DAILY aspirin 81 MG tablet,delayed release (DR/EC) 81 mg PO QDAY Qty: 0 albuterol sulfate [ProAir HFA] 90 mcg/actuation HFA aerosol inhaler 2 puff INHALATION Q6H PRN (Reason: shortness of breath or wheezing) Qty: 18 2RF citalopram 20 mg tablet See Rx Instructions .ROUTE .COMPLEX Qty: 135 3RF Dose Instruction: TAKE ONE AND ONE-HALF TABLETS (30 MG) DAILY (NEEDS TO SEE PRIMARY CARE PHYSICIAN) Rx Instructions: TAKE ONE AND ONE-HALF TABLETS (30 MG) DAILY (NEEDS TO SEE PRIMARY CARE PHYSICIAN) levothyroxine 75 mcg capsule 75 mcg PO DAILY Qty: 90 3RF fluticasone propion-salmeterol [Advair Diskus] 100-50 mcg/dose blister with device 1 inh inhalation BID Qty: 120 3RF raloxifene 60 mg tablet 60 mg PO DAILY Qty: 90 3RF atorvastatin [Lipitor] 20 mg tablet 20 mg PO HS Qty: 90 1RF calcium carbonate-vitamin D3 [Caltrate with Vitamin D3] 600 mg(1,500mg) -800 unit tablet See Rx Instructions PO DAILY Patient Comments: 1/2 tab PO DAILY Rx Instructions: 1/2 tab PO DAILY multivitamin tablet See Rx Instructions PO DAILY Patient Comments: 1/2 tab PO DAILY Rx Instructions: 1/2 tab PO DAILY Lactase 1 tab PO ONCE HS PRN (DME) Resmed AirCurve 10 BI-PAP Qty: 1 Dose Instruction: As directed Rx Instructions: As directed Lutein 15 mg See Rx Instructions .ROUTE .COMPLEX Patient Comments: 1 softgel PO daily Rx Instructions: 1 softgel PO daily magnesium 250 mg tablet 250 mg PO DAILY Disabled Parking Placard 1 each .Route ONCE Qty: 1 0RF Rx Instructions: Patient qualifies for Disabled Parking Placard metoprolol succinate 25 mg tablet extended release 24 hr See Rx Instructions .ROUTE .COMPLEX Dose Instruction: TAKE ONE-HALF (1/2) TABLET IN THE MORNING AND 1 TABLET IN THE EVENING Rx Instructions: 1 TABLET IN THE EVENING gabapentin 100 mg capsule 100 mg PO TID Qty: 90 2RF tramadol 50 mg tablet 50 mg PO TID PRN (Reason: pain) Qty: 90 1RF ibuprofen 200 mg tablet 400 mg PO Q8H omeprazole 20 mg capsule,delayed release(DR/EC) 20 mg PO DAILY Referrals: Ranjeet Pompa DO [Primary Care Provider] - Stand Alone Forms: Patient Portal/API ED Sign-out <Lan Nunez DO - Last Filed: 12/03/23 15:58> Cosign ED Attending Cosignature Attestation: Dr Nunez Co-Sign Statement: I was available for consultation during this patient's emergency department visit. This chart is signed by myself for administrative purposes only. I did not have direct contact with this patient during this visit. They were seen independently by the APC.
[2023-12-03 14:50] VITALS: BP 110/59; PULSE 75; RESP 20; O2SAT 98
== END 2023-12-03 15:46 | disposition home or self-care (01) ==
PROVIDERS: Emergency Provider Physician Assistant Medical; PCP Family Medicine
DX: S93.401A Sprain of unspecified ligament of right ankle, initial encounter (principal); X50.1XXA Overexertion from prolonged static or awkward postures, initial encounter; Z79.899 Other long term (current) drug therapy
CPT/HCPCS: 73610; 73630; 99283

== ENCOUNTER 2023-12-09 09:41 | Outpatient (CLI) | payer MEDICARE, OTHER, SELFPAY ==
[2023-12-09] VITALS (9 sets, daily range): BP systolic 121–163; BP diastolic 57–88; PULSE 67–73; RESP 14–20; TEMP 36.2; O2SAT 97–100
--- NOTE | 2023-12-09 10:45 | DI.RAD.S_ITS ---
PROCEDURE: PAIN L INTERLAMINAR/CAUDAL INJ INDICATIONS: SPINAL STENOSIS COMPARISON: [facility], XA, PAIN L INTERLAMINAR/CAUDAL INJ, 03/18/2023, 9:59. FINDINGS: Fluoroscopic spot filming was performed to verify placement of spinal needles at the L4-5 level(s), as labeled on the films. Appropriate location(s) of the needle tip(s) was confirmed by injection of iodinated contrast. IMPRESSION: Needle localization and contrast overlying L4-5. Dictated by: Aurelia Angulo M.D. on 12/09/2023 at 21:04 Approved by: Aurelia Angulo M.D. on 12/09/2023 at 21:04
[2023-12-09] MEDS: MIDAZOLAM 2 MG/2 ML VIAL 1 MG IV ×2 (11:28→11:35)
[2023-12-09] MEDS: BUPIVACAINE 0.25% (PF) VIAL 5 ML SUBCUT (11:34)
[2023-12-09] MEDS: iopamidoL 15 ML VIAL 3 ML INJ (11:34)
[2023-12-09] MEDS: DEXAMETHASONE 10 MG/ML VIAL 20 MG INJ (11:35)
[2023-12-09] MEDS: BETAMETHASONE 30 MG/5 ML MDV 6 MG INJ (11:36)
--- NOTE | 2023-12-09 11:46 | P.PCN_ITS ---
Date/Time/Diagnoses Date of procedure: 12/09/23 Time of procedure: 11:46 Pre-procedure diagnosis: 1. HNP WITH RADICULAR FEATURES, 2. MULTILEVEL CENTRAL STENOSIS, Post-procedure diagnosis: same Procedure Notes Procedure: 1. FLUOROSCOPICALLY GUIDED CONTRAST CONTROLLED INTERLAMINAR EPIDURAL STEROID INJECTION -L4/5 Indications: Beatriz is referred by Dr. Pompa for treatment of Bilateral Foraminal Stenosis R>L LE symptoms. Physician: Chago Sheridan Total Fluoroscopy time (seconds): 13 Total sedation minutes: 13 Complications: none Procedure in detail & Post-procedure care: FINDINGS Multilevel Central Spinal Stenosis with Nerve Root Compression DESCRIPTION OF PROCEDURE Fluoroscopically guided, contrast-controlled L4/5 translaminar epidural steroid injection. Following review of allergy and review of potential side effects and complications, including, but not necessarily limited to, infection, allergic reaction, local tissue breakdown, temporary as well as permanent nerve injury, paralysis, stroke and possible , the patient indicated that the patient understood and agreed to proceed. An informed consent document was signed by the patient, witnessed by a nurse, and placed in the patient's chart. Additionally, other treatment options including modalities, medications, and physical therapy were reviewed with the patient. After review of previous anaesthesic history and IV conscious sedation the patient was deemed safe to proceed with today?s procedure with IV conscious sedation as ASA class II designation. Safety time-out was performed to confirm patient ID, procedure to be performed and site of procedure. IV sedation was accomplished with a combination of 2mg of Versed was administered by the RN after DO order, titrated to patient comfort during the course of the procedure while the patient remained responsive to all verbal commands In the prone position, following sterile prep and drape of the lumbar region, the L4/5 translaminar space was identified fluoroscopically. The skin was anesthetized via a 25-gauge, 1.5inch needle with 1% lidocaine solution. At this point, a 22-gauge short bevel spinal needle was atraumatically introduced and advanced under fluoroscopic guidance into the region of the L4/5 translaminar space. Depth was confirmed on lateral view. Radiological data, including multiple fluoroscopic views of the lumbar spine, reveal a spinal needle at the L4/5 translaminar space. Lateral views then show placement of the needle in the epidural space. Subsequent views show contrast material flowing superiorly and inferiorly in the epidural space. No vascular or intrathecal uptake is observed. At this point, using loss of resistance technique with saline and air, the epidural space was entered. This was confirmed following negative aspiration with injection of approximately 1.5cc of Isovue 200, showing excellent epidural flow without vascular or intrathecal uptake. At this point, 1cc of 1% lidocaine solution combined with 2cc or 10mg of dexamethasone and 6mg betamethasone was injected without incident. The patient tolerated the procedure well without signs or symptoms of complications prior to transfer to the recovery area continued monitoring without incident. The patient was then transferred to the recovery area where they were observed for an appropriate period of time after the injection. The patient reported a VAS score of 6 prior to the procedure and a post- procedure VAS of 0. POST OP INSTRUCTIONS The patient was provided a Pain Log to continue to record their response to the target-specific procedure prior to follow-up visit with their referring physician. Additionally, specific post-injection care instructions and a contact number to our office were provided if concerns arise regarding possible complications associated with the procedure are suspected.
== END 2023-12-09 12:09 | disposition home or self-care (01) ==
LOC: RAD 09:43
PROVIDERS: PCP Family Medicine; Referring Provider Physical Medicine & Rehabilitation; Visit Provider Physical Medicine & Rehabilitation
DX: M51.16 Intervertebral disc disorders with radiculopathy, lumbar region (principal); M48.061 Spinal stenosis, lumbar region without neurogenic claudication
CPT/HCPCS: 62323; 99152; J0702; J1100; J2250; J3490

== ENCOUNTER → 2024-02-23 07:28 | Outpatient (CLI) | payer MEDICARE, OTHER, SELFPAY ==
[2024-02-23 08:40] LABS: Add Manual Diff / Slide Review NO; Basophils Absolute Auto 0 /uL (0-100); Basophils Percent Auto 0.7 % (0-2); Eosinophils Absolute Auto 200 /uL (0-450); Eosinophils Percent Auto 4.4 % (2-4); Hematocrit 38.3 % (36-46); Lymphocytes Absolute Auto 1800 /uL (1100-4500); Lymphocytes Percent Auto 35.4 % (25-40); Mean Corpuscular HGB Conc 33.9 % (30-36); Mean Corpuscular Hemoglobin 30.8 PG (26-34); Monocytes Absolute Auto 400 /uL (0-900); Monocytes Percent Auto 8.8 % (3-14); Neutrophils Absolute Auto 2600 /uL (1500-7000); Neutrophils Percent Auto 50.7 % (50-75); Platelet Count 285 X10^3/uL (150-400); Red Blood Cell Count 4.21 X10^6/uL (4.0-5.2); Red Cell Distribution Width 13.3 % (11.6-14.8)
[2024-02-23 09:22] LABS: Hemoglobin A1C% w Est Avg Glu 5.5 % (4.0-6.0)
[2024-02-23 09:40] LABS: Alanine Aminotransferase 23 IU/L (<35); Albumin 3.8 g/dL (3.5-5.0); Albumin Globulin Ratio 1.6 (1.0-2.8); Alkaline Phosphatase 75 U/L (38-126); Aspartate Aminotransferase 28 IU/L (14-36); BUN Creatinine Ratio 26.8 (6-22); Bilirubin Total 0.9 mg/dL (0.2-1.3); Blood Urea Nitrogen 22 mg/dL (7-17); Calcium 9.8 mg/dL (8.4-10.2); Carbon Dioxide 28 mmol/L (22-32); Chloride 105 mmol/L (98-107); Estimated Glomerular Filt Rate > 60 mL/min (>60); Globulin 2.4 g/dL (1.7-4.1); Glucose 81 mg/dL (80-110); HEMOLYSIS < 15 (0-50); Potassium 4.4 mmol/L (3.4-5.1); Sodium 137 mmol/L (137-145); Total Protein 6.2 g/dL (6.3-8.2)
[2024-02-23 09:50] LABS: Free T4, Direct Thyroxine 0.89 ng/dL (0.78-2.19)
[2024-02-23 10:04] LABS: Thyroid Stimulating Hormone 1.31 uIU/mL (0.47-4.68)
== END ==
LOC: LAB 07:29
PROVIDERS: PCP Family Medicine; Referring Provider Family Medicine; Visit Provider Family Medicine
DX: R73.9 Hyperglycemia, unspecified (principal); I10 Essential (primary) hypertension; E78.5 Hyperlipidemia, unspecified; E04.1 Nontoxic single thyroid nodule; R79.89 Other specified abnormal findings of blood chemistry
CPT/HCPCS: 36415; 80053; 83036; 84439; 84443; 85025

== ENCOUNTER 2024-05-02 08:29 | Outpatient (CLI) | payer MEDICARE, OTHER, SELFPAY ==
[2024-05-02] VITALS (8 sets, daily range): BP systolic 127–145; BP diastolic 60–74; PULSE 64–68; RESP 11–17; TEMP 36.6; O2SAT 98–100
--- NOTE | 2024-05-02 09:09 | DI.RAD.S_ITS ---
PROCEDURE: XR KNEE RT 3V INDICATIONS: RIGHT KNEE PAIN TECHNIQUE: 3 views of the knee were acquired. COMPARISON: [facility] [place], CR, XR KNEE 4+ VIEWS RIGHT, 02/23/2024, 14:00. FINDINGS: Bones: No fractures or dislocations. No suspicious bony lesions. Moderate tricompartmental osteoarthritis. Soft tissues: Small joint effusion. No suspicious soft tissue calcifications. IMPRESSION: 1. No acute bony abnormality. 2. Moderate osteoarthritis. 3. Small knee joint effusion. Dictated by: Rolly Lowe M.D. on 05/02/2024 at 10:51 Approved by: Rolly Lowe M.D. on 05/02/2024 at 10:53
--- NOTE | 2024-05-02 09:15 | DI.RAD.S_ITS ---
PROCEDURE: PAIN L INTERLAMINAR/CAUDAL INJ INDICATIONS: T12-L1 TL YRN COMPARISON: [facility], CR, XR LUMBAR SPINE MIN 4V, 11/24/2023, 12:43. FINDINGS: Fluoroscopic spot filming was performed to verify placement of spinal needles at the T12-L1 level(s), as labeled on the films. Appropriate location(s) of the needle tip(s) was confirmed by injection of iodinated contrast. IMPRESSION: Fluoroscopy for pain management. Dictated by: Rolly Lowe M.D. on 05/02/2024 at 10:23 Approved by: Rolly Lowe M.D. on 05/02/2024 at 10:24
[2024-05-02] MEDS: iopamidoL 15 ML VIAL 3 ML INJ (09:36)
[2024-05-02] MEDS: BUPIVACAINE 0.25% (PF) VIAL 2 ML INJ (09:37)
[2024-05-02] MEDS: DEXAMETHASONE 10 MG/ML VIAL 20 MG INJ (09:37)
--- NOTE | 2024-05-02 09:47 | P.PCN_ITS ---
Date/Time/Diagnoses Date of procedure: 05/02/24 Time of procedure: 09:47 Pre-procedure diagnosis: Thoracic stenosis with HNP Post-procedure diagnosis: same Procedure Notes Procedure: Fluoroscopic guided, contrast controlled T12/L1 translaminar epidural steroid injection with conscious sedation. Indications: Beatriz is referred by [facility] for treatment of thoracic DDD/DJD with radiculopathy Physician: Chago Sheridan Total Fluoroscopy time (seconds): 8 Total sedation minutes: 0 Complications: none Procedure in detail & Post-procedure care: DESCRIPTION OF PROCEDURE Fluoroscopic guided, contrast controlled T12/L1 translaminar epidural steroid injection with conscious sedation. Following review of allergy review potential side effects and complications, including, but not necessarily limited to, infection, allergic reaction, local tissue breakdown, temporary as well as permanent nerve injury, stroke, paralysis and possible , the patient indicated that they understood and agreed to proceed. An informed consent document was signed by the patient, witnessed by the nurse, and placed in the patient's chart. Additionally other treatment options including modalities, medications and physical therapy were reviewed with the patient. After review of previous anaesthesic history and IV conscious sedation the patient was deemed safe to proceed with today's procedure with IV conscious sedation as ASA class II designation. Safety time-out was performed to confirm patient ID, procedure to be performed and site of procedure. IV sedation was not administered by the RN after DO order, titrated to patient comfort during the course of the procedure while the patient remained responsive to all verbal commands In the prone position, following sterile prep and drape of the thoracic region the T12/L1 translaminar space was identified fluoroscopically. The skin was anesthetized via 25 gauge 1.5inch needle with 1% lidocaine solution. At this point a 22gauge epidural needle was atraumatically introduced and advanced under fluoroscopic guidance into the region of the T12/L1 translaminar space depth was confirmed on lateral view. Radiographic data, including multiple fluoroscopic views of the thoracic spine, reveals spinal needle at the T12/L1 translaminar space. Lateral views then showed the placement of the needle in the epidural space. Subsequent view show contrast material flowing superiorly and inferiorly in the epidural space. No vascular or intrathecal uptake is observed. At this point using loss of resistance technique with saline and the epidural space was entered. This was confirmed followed negative aspiration and injection of approximately 1.5cc of Isovue 200 showed excellent epidural flow without vascular or intrathecal uptake. At this point, 1 cc of 1% lidocaine solution was admitted as a test dose and the patient was observed for an appropriate period of time without signs or symptoms of complications, including abdominal pain, shortness of breath, bilateral upper and lower extremity weakness, nausea and vomiting, prior to steroid injection. Subsequently, 2cc or 20mg of dexamethasone was then injected without incident. The patient tolerated the procedure well without signs of complications and subsequently was transferred to the recovery room for further monitoring. The patient was then transferred to the recovery area with their observed for an appropriate time after the injection. Patient reported a VAS score of 7 prior to the procedure and post-procedure VAS of 2.
--- NOTE | 2024-05-02 10:36 | PC.NURSE ---
Patient had X-ray orders in computer and asked if the xray could be done today. The orders were able to be pulled and x-ray done for this patient according to the order in computer.
== END 2024-05-02 10:36 | disposition home or self-care (01) ==
LOC: RAD 08:30
PROVIDERS: PCP Nurse Practitioner Family; Referring Provider Physical Medicine & Rehabilitation; Visit Provider Physical Medicine & Rehabilitation
DX: M48.04 Spinal stenosis, thoracic region (principal); M51.14 Intervertebral disc disorders with radiculopathy, thoracic region; M25.561 Pain in right knee; M17.11 Unilateral primary osteoarthritis, right knee; M25.462 Effusion, left knee
CPT/HCPCS: 62323; 73562; J1100; J3490

== ENCOUNTER → 2024-08-08 11:25 | Outpatient (CLI) | payer MEDICARE, OTHER, SELFPAY ==
--- NOTE | 2024-08-08 11:26 | DI.MG.S_ITS ---
BILATERAL DIGITAL SCREENING MAMMOGRAM 3D/2D WITH CAD: 08/08/2024 CLINICAL: Routine screening. Comparison is made to exams dated: 07/25/2021 mammogram and 07/30/2022 mammogram - [facility]. There are scattered areas of fibroglandular density (category b / 25%-50% glandular tissue). Current study was also evaluated with a Computer Aided Detection (CAD) system. There are benign calcifications in both breasts. There also are benign post operative findings in both breasts. No significant masses, calcifications, or other findings are seen in either breast. There has been no significant interval change. IMPRESSION: BENIGN There is no mammographic evidence of malignancy. A 1 year screening mammogram is recommended. Based on the Tyrer Cuzick model (a risk assessment model) the patient's lifetime risk is 0.6% and her 10 year risk is 0.0%. According to the ACR, ACS, and NCCN guidelines, an annual breast MRI exam along with mammogram is recommended if the patient's lifetime risk is 20% or greater. This exam was interpreted at Station ID: [id number]. NOTE: For mammograms, a report in lay terms will be sent to the patient. Approximately 15% of breast malignancies will not be visualized mammographically. In the management of a palpable breast mass, a negative mammogram must not discourage biopsy of a clinically suspicious lesion. Electronically Signed By: Lizzy patrick/delfina:08/08/2024 14:36:33 letter sent: Normal Exam ACR BI-RADS Category 2: Benign [id number]
== END ==
PROVIDERS: PCP Nurse Practitioner Family; Referring Provider Nurse Practitioner Family; Visit Provider Nurse Practitioner Family
DX: Z12.31 Encounter for screening mammogram for malignant neoplasm of breast (principal); R92.323 Mammographic fibroglandular density, bilateral breasts
CPT/HCPCS: 77063; 77067

== ENCOUNTER 2024-12-05 13:04 | Outpatient (CLI) | payer MEDICARE, OTHER, SELFPAY ==
[2024-12-05] VITALS (7 sets, daily range): BP systolic 134–149; BP diastolic 65–74; PULSE 62–68; RESP 14–20; TEMP 36.1; O2SAT 97–100
--- NOTE | 2024-12-05 14:28 | DI.RAD.S_ITS ---
PROCEDURE: PAIN L INTERLAMINAR/CAUDAL INJ INDICATIONS: LUMBAR STENOSIS COMPARISON: Merged With [facility], XA, PAIN L INTERLAMINAR/CAUDAL INJ, 05/02/2024, 9:33. Merged With [facility], XA, PAIN L INTERLAMINAR/CAUDAL INJ, 12/09/2023, 12:32. Merged With [facility], XA, PAIN L INTERLAMINAR/CAUDAL INJ, 03/18/2023, 9:59. FINDINGS/IMPRESSION: Fluoroscopic spot filming was performed to verify placement of spinal needles at the left L4-L5 level(s), as labeled on the films. Appropriate location(s) of the needle tip(s) was confirmed by injection of iodinated contrast. Dictated by: Lobo Ramirez M.D. on 12/12/2024 at 11:05 Approved by: Lobo Ramirez M.D. on 12/12/2024 at 11:05
[2024-12-05] MEDS: BETAMETHASONE 30 MG/5 ML MDV 12 MG INJ (14:49)
[2024-12-05] MEDS: BUPIVACAINE 0.25% (PF) VIAL 2 ML INJ (14:49)
[2024-12-05] MEDS: iopamidoL 15 ML VIAL 3 ML INJ (14:49)
[2024-12-05] MEDS: DEXAMETHASONE 10 MG/ML VIAL INJ (14:50)
--- NOTE | 2024-12-05 15:07 | P.PCN_ITS ---
Date/Time/Diagnoses Date of procedure: 12/05/24 Time of procedure: 15:07 Pre-procedure diagnosis: 1. HNP WITH RADICULAR FEATURES, 2. MULTILEVEL CENTRAL STENOSIS, Post-procedure diagnosis: same Procedure Notes Procedure: 1. FLUOROSCOPICALLY GUIDED CONTRAST CONTROLLED INTERLAMINAR EPIDURAL STEROID INJECTION -L4/5 Indications: Beatriz is referred by [facility]jan [facility] for treatment of Bilateral Foraminal Stenosis R>L LE symptoms. Physician: Chago Sheridan Total Fluoroscopy time (seconds): 18 Total sedation minutes: 0 Complications: none Procedure in detail & Post-procedure care: FINDINGS Multilevel Central Spinal Stenosis with Nerve Root Compression DESCRIPTION OF PROCEDURE Fluoroscopically guided, contrast-controlled L4/5 translaminar epidural steroid injection. Following review of allergy and review of potential side effects and complications, including, but not necessarily limited to, infection, allergic reaction, local tissue breakdown, temporary as well as permanent nerve injury, paralysis, stroke and possible , the patient indicated that the patient understood and agreed to proceed. An informed consent document was signed by the patient, witnessed by a nurse, and placed in the patient's chart. Additionally, other treatment options including modalities, medications, and physical therapy were reviewed with the patient. After review of previous anaesthesic history and IV conscious sedation the patient was deemed safe to proceed with today?s procedure with IV conscious sedation as ASA class II designation. Safety time-out was performed to confirm patient ID, procedure to be performed and site of procedure. IV sedation was not administered by the RN after DO order, titrated to patient comfort during the course of the procedure while the patient remained responsive to all verbal commands In the prone position, following sterile prep and drape of the lumbar region, the L4/5 translaminar space was identified fluoroscopically. The skin was anesthetized via a 25-gauge, 1.5inch needle with 1% lidocaine solution. At this point, a 22-gauge short bevel spinal needle was atraumatically introduced and advanced under fluoroscopic guidance into the region of the L4/5 translaminar space. Depth was confirmed on lateral view. Radiological data, including multiple fluoroscopic views of the lumbar spine, reveal a spinal needle at the L4/5 translaminar space. Lateral views then show placement of the needle in the epidural space. Subsequent views show contrast material flowing superiorly and inferiorly in the epidural space. No vascular or intrathecal uptake is observed. At this point, using loss of resistance technique with saline and air, the epidural space was entered. This was confirmed following negative aspiration with injection of approximately 1.5cc of Isovue 200, showing excellent epidural flow without vascular or intrathecal uptake. At this point, 1cc of 1% lidocaine solution combined with 2cc or 10mg of dexamethasone and 6mg betamethasone was injected without incident. The patient tolerated the procedure well without signs or symptoms of complications prior to transfer to the recovery area continued monitoring w ithout incident. The patient was then transferred to the recovery area where they were observed for an appropriate period of time after the injection. The patient reported a VAS score of 6 prior to the procedure and a post- procedure VAS of 0. POST OP INSTRUCTIONS The patient was provided a Pain Log to continue to record their response to the target-specific procedure prior to follow-up visit with their referring physician. Additionally, specific post-injection care instructions and a contact number to our office were provided if concerns arise regarding possible complications associated with the procedure are suspected.
== END 2024-12-05 15:16 | disposition home or self-care (01) ==
PROVIDERS: PCP Nurse Practitioner Family; Referring Provider Physical Medicine & Rehabilitation; Visit Provider Physical Medicine & Rehabilitation
DX: M51.16 Intervertebral disc disorders with radiculopathy, lumbar region (principal); M48.061 Spinal stenosis, lumbar region without neurogenic claudication
CPT/HCPCS: 62323; J0702; J1100; J3490

== ENCOUNTER → 2025-08-21 11:10 | Outpatient (CLI) | payer MEDICARE, OTHER, SELFPAY ==
--- NOTE | 2025-08-21 11:11 | DI.RAD.S_ITS ---
PROCEDURE: XR WRIST RT 2V INDICATIONS: Right Wrist Pain TECHNIQUE: 2 views of the wrist were acquired. COMPARISON: None. 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 Advanced degenerative change at the distal radioulnar joint and proximal lunate. Periarticular calcifications at the ulnar aspect of the wrist. Age-indeterminate osseous erosion of the ulnar styloid and large geode in the distal ulna. Osseous demineralization. No acute fracture or focal soft tissue swelling. IMPRESSION: Age-indeterminate erosion of the ulna could represent sequelae of prior trauma, inflammatory arthritis or gout. Severe degenerative arthritis. Dictated by: Alejandro Velasquez M.D. on 08/21/2025 at 12:40 Approved by: Alejandro Velasquez M.D. on 08/21/2025 at 12:43
== END ==
PROVIDERS: PCP Nurse Practitioner Family; Referring Provider Physical Medicine & Rehabilitation; Visit Provider Physical Medicine & Rehabilitation
DX: M19.031 Primary osteoarthritis, right wrist (principal)
CPT/HCPCS: 73100

== ENCOUNTER → 2025-10-31 10:31 | Outpatient (CLI) | payer MEDICARE, OTHER, SELFPAY | PROVIDERS: PCP Nurse Practitioner Family; Visit Provider Nurse Practitioner Family | DX: L08.9 Local infection of the skin and subcutaneous tissue, unspecified (principal) | CPT/HCPCS: 87070; 87077; 87147; 87205 ==